=== PATIENT | male | born 1965 | race Caucasian/White ===

== ENCOUNTER 2023-12-02 00:22 | Emergency (ER) | payer OTHER ==
[2023-12-02 00:28] VITALS: TEMP 97.5
--- NOTE | 2023-12-02 01:17 | ERPHSYRPT ---
- History of Present Illness Time Seen by Provider: 12/02/23 00:59 Source: patient Exam Limitations: no limitations Patient Subjective Stated Complaint: 3 FALLS AT HOME TODAY, LEFT SIDED RIB PAIN Triage Nursing Assessment: Pt brought back to ER room 5 via wheelchair, friend at bedside. Pt is alert and oriented x4. Pt c/o 3 falls today, weakness over the last month, and occasional dizziness. Pt c/o left side of ribs hurting, no bruising noted, but pt is very tender to touch left rib area. Pt fell 2 times inside and 1 time outside today. Pt denies any loc or seizure with falls. Pt has multiple abrasion areas to left side of forehead, above left eye, left upper cheek, bilat hands and arms and bilat knees. Lungs clear, heart tones reg. Pt c/o pain when taking in a deep breath. Pt does not live alone, he has roommates. Pt has a cane but was not using it today with any of his falls. Pt has had several medicine changes lately, and he's thinking this may be the cause of it. His sleeping pill was added on 11/26/23. Physician History: Pt states yesterday he fell twice inside(living room & bedroom) and once outside on an asphalt driveway. Pt states the reason for his falls is that he looses his balance and this has been happening for the past 2 years since his stroke. Pt c/o a bitemporal headache, left rib pain and left thigh pain. Pt states his stroke 2 years ago has left him with residual left sided weakness and decreased sensation in his left hand. Pt denies abdominal pain, nausea, vomiting, diarrhea, fever, chills, cough, back pain. Allergies/Adverse Reactions: Penicillins Allergy (Verified 12/02/23 00:25) Home Medications: Amiodarone HCl [Pacerone] 200 mg PO DAILY 12/02/23 [History] Amlodipine Besylate 5 mg [Norvasc 5 mg] 1 tab PO EVENING MEAL 12/02/23 [History] Aripiprazole 10 mg [Abilify 10 MG] 1 tab PO EVENING MEAL 12/02/23 [History] Aspirin EC 81 mg [Ecotrin 81 mg] 1 tab PO EVENING MEAL 12/02/23 [History] Atomoxetine HCl 18 mg PO DAILY 12/02/23 [History] Atorvastatin Calcium 80 mg PO EVENING MEAL 12/02/23 [History] PARoxetine HCL [Paroxetine HCl] 10 mg PO DAILY 12/02/23 [History] Zolpidem Tartrate 10 mg [Ambien 10 MG] 1 tab PO EVENING MEAL 12/02/23 [History] Hx Tetanus, Diphtheria Vaccination/Date Given: Yes Hx Influenza Vaccination/Date Given: No Hx Pneumococcal Vaccination/Date Given: No Travel Risk - International Travel Have you traveled outside of the country in past 3 weeks: No - Emerging Infectious Disease Are you exhibiting symptoms associated with any current EIDs: No - Review of Systems Constitutional: No Fever, No Chills Ears, Nose, & Throat: No Throat Pain Respiratory: Other (pain in left ribs with deep inspiration), No Dyspnea Cardiac: Chest Pain (left lateral rib pain) Abdominal/Gastrointestinal: No Abdominal Pain, No Nausea, No Vomiting, No Diar hosea Musculoskeletal: No Back Pain Neurological: Headache (bitemporal) - Past Medical History Pertinent Past Medical History: Yes Neurological History: Stroke ENT History: No Pertinent History Cardiac History: Angina, Arrhythmia, Congestive Heart Failure, Hypertension, Myocardial Infarction ([place]) Respiratory History: Sleep Apnea Endocrine Medical History: No Pertinent History Musculoskeletal History: Rheumatoid Arthritis GI Medical History: No Pertinent History History: No Pertinent History Psycho-Social History: Anxiety, Bipolar, Depression, Panic Disorder Male Reproductive Disorders: No Pertinent History - Past Surgical History Past Surgical History: Yes Neuro Surgical History: No Pertinent History Cardiac: Cardiac Catheterization, Cardiac Stent Respiratory: No Pertinent History Gastrointestinal: Appendectomy Genitourinary: No Pertinent History Musculoskeletal: Orthopedic Surgery Male Surgical History: No Pertinent History Other Surgical History: RT SHOULDER - Social History Smoking Status: Current every day smoker How long have you smoked: 43 YRS Exposure to second hand smoke: Yes Drug Use: marijuana - Social Determinants of Health Will the patient participate in the screening: Yes Do you worry about a steady place to live?: Yes Do you have any problems with any of the following?: No known problems In the past 12 months,have you had to go without utilities?: No Transportation Issues: Yes Has anyone in your support network made you feel unsafe?: No Have you or anyone in your house had to go without enough: No - Nursing Vital Signs Nursing Vital Signs: Initial Vital Signs Pulse Rate 79 12/02/23 00:21 Respiratory Rate 22 12/02/23 00:21 Blood Pressure 136/80 12/02/23 00:21 O2 Sat by Pulse Oximetry 95 12/02/23 00:21 Pain Scale Pain Intensity 1 - [place] Coma Score Best Eye Response ([place]): (4) open spontaneously Best Verbal Response ([place]): (5) oriented Best Motor Response ([place]): (6) obeys commands [place] Total: 15 - Physical Exam General Appearance: alert Head Injury: No no evidence of injury (Scattered abrasions on face) Eye Exam: PERRL/EOMI ENT Exam: airway nml, hearing grossly normal, No clear fluid (ears), No clear fluid (nose) Neck Exam: pain on movement of neck (mild pain when rotating head to right) Respiratory/Chest Exam: normal breath sounds, rib tenderness (moderate left lateral rib tenderness) Cardiovascular Exam: normal heart sounds Gastrointestinal Exam: normal bowel sounds, No tenderness Back Exam: No vertebral tenderness Extremity Exam: normal range of motion, tenderness (mid left thigh tenderness) Peripheral Pulses: dorsalis-pedis (R): 1+, dorsalis-pedis (L): 1+ Neurologic Exam: alert, cooperative, sensory deficit (decreased sensation in left hand(ongoing since CVA 2 years ago)), No motor deficits Skin Exam: abrasion (scattered abrasions on upper & lower extremities) SpO2 Interpretation: normal SpO2: 95 O2 Delivery: Room Air - Course Nursing assessment & vital signs reviewed: Yes EKG Interpreted by Me: RATE (78), Sinus Rhythm, NORMAL AXIS, Other (QTc = 483) - Radiology Exams Left Femur X-ray Interpretation: Interpreted by me, No Fracture - CT Exams Chest CT Interpretation: Tele-radiologist Report (Multilevel bilateral rib fractures, and displaced acute fractures were noted on the left anterior ribs. Left patchy consolidations and left mild pleural effusion could represent mild heomthorax w ith adjacent pulmonary contusions. See rest of report.) Head CT Interpretation: Tele-radiologist Report (Diffusely swollen left cadet deck muscles with smudged surrounding fat planes. Left frontal subcortical well defined hemorragic density 11 x 9 mm. See rest of report.) Cervical Spine CT Interpretation: Tele-radiologist Report (No vertebral fractures or acute dislocation. See rest of report.) Maxillofacial Bones CT Interpretation: Tele-radiologist Report (Left orbital inferior wall blowout fracture with sagging of the extra-conal fat, no obvious extra-ocular muscles entrapment. Fine lucent line traversing the right nasal bone that could represent a nutrient vessel versus non-displaced fracture. See rest of report.) Ordered Tests: Active Orders 24 hr Category Date Time Status Cervical Collar Application STAT Care 12/02/23 03:40 Active EKG-ER Only STAT Care 12/02/23 01:12 Active IV Insertion STAT Care 12/02/23 01:12 Active ACO SDOH Referral ONCE Cons 12/02/23 00:43 Active CERVICAL SPINE WO CONTRAST [CT] Stat Exams 12/02/23 01:15 Completed CHEST WITHOUT CONTRAST [CT] Stat Exams 12/02/23 01:14 Completed FACIAL BONES WO CONTRAST [CT] Stat Exams 12/02/23 01:20 Completed FEMUR Stat Exams 12/02/23 01:15 Taken HEAD WITHOUT CONTRAST [CT] Stat Exams 12/02/23 01:14 Completed AMYLASE Stat Lab 12/02/23 01:33 Completed CBC W DIFF Stat Lab 12/02/23 01:33 Completed CMP Stat Lab 12/02/23 01:33 Completed ETHYL ALCOHOL Stat Lab 12/02/23 01:33 Completed LIPASE Stat Lab 12/02/23 01:33 Completed MAGNESIUM Stat Lab 12/02/23 01:33 Completed PROTIME WITH INR Stat Lab 12/02/23 01:33 Completed PTT Stat Lab 12/02/23 01:33 Completed TROPONIN Q4H Lab 12/02/23 01:33 Completed TROPONIN Q4H Lab 12/02/23 05:15 Ordered TROPONIN Q4H Lab 12/02/23 09:15 Ordered UA W/RFX UR CULTURE Stat Lab 12/02/23 01:12 Ordered Urine Triage Profile Stat Lab 12/02/23 01:12 Ordered Medication Summary Discontinued Medications Generic Name Dose Route Start Last Admin Trade Name Freq PRN Reason Stop Dose Admin Sodium Chloride 1,000 mls @ 999 mls/hr 12/02/23 01:12 12/02/23 03:03 Sodium Chloride 0.9% 1000 Ml IV 12/02/23 02:12 Infused .Q1H1M STA Infusion Acetaminophen 1,000 mg in 100 mls @ 400 mls/hr 12/02/23 01:33 12/02/23 02:02 Ofirmev IV 12/02/23 01:47 400 mls/hr 1HRPRIOR ONE Administration Acetaminophen Confirm 12/02/23 01:34 Ofirmev Administered 12/02/23 01:35 Dose 100 mls @ ud IV .STK-MED ONE Sodium Chloride Confirm 12/02/23 01:34 Sodium Chloride 0.9% 1000 Ml Administered 12/02/23 01:35 Dose 1,000 mls @ ud .ROUTE .STK-MED ONE Lab/Rad Data: Laboratory Result Diagrams 12/02/23 01:33 12/02/23 01:33 Laboratory Results 12/02/23 12/02/23 12/02/23 Range/Units 01:33 01:33 01:33 WBC (4.23-9.07) x10^3/uL RBC (4.63-6.08) x10^6/uL Hgb (13.7-17.5) g/dL Hct (40.1-51.0) % MCV (79.0-92.2) fL MCH (25.7-32.2) pg MCHC (32.3-36.5) g/dL RDW (11.6-14.4) % Plt Count (163-337) x10^3/uL MPV (9.4-12.4) fL Gran % (34.0-67.9) % Immature Gran % (Auto) (0.001-0.429) % Nucleat RBC Rel Count (0.00-0.2) % Eos # (Auto) (0.04-0.54) x10^3/uL Immature Gran # (Auto) (0.001-0.031) x10^3u/L Absolute Lymphs (auto) (1.32-3.57) x10^3/uL Absolute Monos (auto) (0.30-0.82) x10^3/uL Absolute Nucleated RBC (0.00-0.012) x10^3u/L Lymphocytes % (21.8-53.1) % Monocytes % (5.3-12.2) % Eosinophils % (0.8-7.0) % Basophils % (0.2-1.2) % Absolute Granulocytes (1.78-5.38) x10^3/uL Basophils # (0.01-0.08) x10^3/uL PT 10.9 (9.4-12.5) SECONDS INR 1.00 (0.8-3.0) APTT 26.3 (25.1-36.5) SECONDS Sodium 136 (135-145) mmol/L Potassium 3.1 L (3.5-5.1) mmol/L Chloride 98 (98-107) mmol/L Carbon Dioxide 26 (22-30) mmol/L Anion Gap 14.8 (5-15) MEQ/L BUN 22 H (9-20) mg/dL Creatinine 1.28 H (0.66-1.25) mg/dL Estimated GFR 64.9 ML/MIN Glucose 139 H (74-106) mg/dL Calcium 9.6 (8.4-10.2) mg/dL Magnesium 2.0 (1.6-2.3) mg/dL Total Bilirubin 1.00 (0.2-1.3) mg/dL AST 72 H (17-59) U/L ALT 70 H (0-50) U/L Alkaline Phosphatase 114 (38-126) U/L Troponin I 0.033 (0.000-0.033) ng/mL Serum Total Protein 7.6 (6.3-8.2) g/dL Albumin 4.3 (3.5-5.0) g/dL Amylase 63 (30-110) U/L Lipase 118 (23-300) U/L Ethyl Alcohol < 10 (0-10) mg/dL 12/02/23 Range/Units 01:33 WBC 13.3 H (4.23-9.07) x10^3/uL RBC 4.72 (4.63-6.08) x10^6/uL Hgb 13.7 (13.7-17.5) g/dL Hct 40.1 (40.1-51.0) % MCV 85.0 (79.0-92.2) fL MCH 29.0 (25.7-32.2) pg MCHC 34.2 (32.3-36.5) g/dL RDW 14.6 H (11.6-14.4) % Plt Count 240 (163-337) x10^3/uL MPV 10.8 (9.4-12.4) fL Gran % 87.5 H (34.0-67.9) % Immature Gran % (Auto) 0.5 H (0.001-0.429) % Nucleat RBC Rel Count 0.0 (0.00-0.2) % Eos # (Auto) 0 L (0.04-0.54) x10^3/uL Immature Gran # (Auto) 0.06 H (0.001-0.031) x10^3u/L Absolute Lymphs (auto) 0.98 L (1.32-3.57) x10^3/uL Absolute Monos (auto) 0.59 (0.30-0.82) x10^3/uL Absolute Nucleated RBC 0.00 (0.00-0.012) x10^3u/L Lymphocytes % 7.4 L (21.8-53.1) % Monocytes % 4.4 L (5.3-12.2) % Eosinophils % 0.0 L (0.8-7.0) % Basophils % 0.2 (0.2-1.2) % Absolute Granulocytes 11.63 H (1.78-5.38) x10^3/uL Basophils # 0.03 (0.01-0.08) x10^3/uL PT (9.4-12.5) SECONDS INR (0.8-3.0) APTT (25.1-36.5) SECONDS Sodium (135-145) mmol/L Potassium (3.5-5.1) mmol/L Chloride (98-107) mmol/L Carbon Dioxide (22-30) mmol/L Anion Gap (5-15) MEQ/L BUN (9-20) mg/dL Creatinine (0.66-1.25) mg/dL Estimated GFR ML/MIN Glucose (74-106) mg/dL Calcium (8.4-10.2) mg/dL Magnesium (1.6-2.3) mg/dL Total Bilirubin (0.2-1.3) mg/dL AST (17-59) U/L ALT (0-50) U/L Alkaline Phosphatase (38-126) U/L Troponin I (0.000-0.033) ng/mL Serum Total Protein (6.3-8.2) g/dL Albumin (3.5-5.0) g/dL Amylase (30-110) U/L Lipase (23-300) U/L Ethyl Alcohol (0-10) mg/dL - Progress Progress: unchanged Will see patient in: other (Dr. Zee([id number]) accepted pt for transfer to [facility].) Counseled pt/family regarding: lab results, diagnosis, rad results Medical Desision Making - Diagnostic Testing Diagnostic test were ordered, analyzed, and reviewed by me: Yes Radiological Interpretation: Discussed w/ radiologist - Departure Departure Disposition: Transfer ([facility]) Clinical Impression: Fall, Left orbital blowout fracture, Possible nasal bone fracture, Left frontal hemorrhagic density, Multiple acute left rib fractures Condition: Stable Critical Care Time: Yes Critical Care Time(excluding separately billable procedures): Critical 30-74 mins Referrals: MABEL GUSMAN [Primary Care Provider] - Follow up/PCP as directed
[2023-12-02] MEDS ORDERED: Sodium Chloride 0.9% 1000 ML 1,000 ML ONE (01:34)
[2023-12-02] MEDS ORDERED: OFIRMEV 100 ML IV ONE (01:34)
[2023-12-02 01:36] LABS: Absolute Neutrophil Ct (ANC) 11.63 x10^3/uL (1.78-5.38); BASOPHIL % 0.2 % (0.2-1.2); Basophil (Absolute #) 0.03 x10^3/uL (0.01-0.08); Eosinophil (Absolute #) 0 x10^3/uL (0.04-0.54); Hematocrit 40.1 % (40.1-51.0); Hemoglobin 13.7 g/dL (13.7-17.5); IMMATURE GRAN # 0.06 x10^3u/L (0.001-0.031); IMMATURE GRAN % 0.5 % (0.001-0.429); Lymphocyte (Absolute #) 0.98 x10^3/uL (1.32-3.57); Lymphocytes % 7.4 % (21.8-53.1); Mean Corpuscular Hgb Concent. 34.2 g/dL (32.3-36.5); Mean Platelet Volume 10.8 fL (9.4-12.4); Monocyte (Absolute #) 0.59 x10^3/uL (0.30-0.82); Monocytes % 4.4 % (5.3-12.2); Neutrophil % 87.5 % (34.0-67.9); Platelet Count 240 x10^3/uL (163-337); Red Blood Count 4.72 x10^6/uL (4.63-6.08); Red Cell Distribution Width 14.6 % (11.6-14.4); White Blood Count 13.3 x10^3/uL (4.23-9.07)
[2023-12-02 01:51] LABS: ALBUMIN 4.3 g/dL (3.5-5.0); ALKALINE PHOSPHATASE 114 U/L (38-126); AMYLASE 63 U/L (30-110); ANION GAP 14.8 MEQ/L (5-15); BLOOD UREA NITROGEN 22 mg/dL (9-20); CHLORIDE 98 mmol/L (98-107); Calcium 9.6 mg/dL (8.4-10.2); Carbon Dioxide 26 mmol/L (22-30); Creatinine 1 1.28 mg/dL (0.66-1.25); EST GLOMERULAR FILTRATION RATE 64.9 ML/MIN; ETHYL ALCOHOL < 10 mg/dL (0-10); Glucose 139 mg/dL (74-106); LIPASE 118 U/L (23-300); Potassium 3.1 mmol/L (3.5-5.1); SGOT/AST 72 U/L (17-59); SGPT/ALT 70 U/L (0-50); SODIUM 136 mmol/L (135-145); Total Protein 7.6 g/dL (6.3-8.2)
[2023-12-02 01:52] LABS: PROTIME 10.9 SECONDS (9.4-12.5); PTT 26.3 SECONDS (25.1-36.5)
[2023-12-02] MEDS: Sodium Chloride 0.9% 1000 ML 1,000 ML IV STA (02:02)
[2023-12-02] MEDS: OFIRMEV 1,000 MG/100 ML ML IV ONE (02:02)
--- NOTE | 2023-12-02 02:29 | XRAY ---
CLINICAL HISTORY: fall/bitemporal headache COMPARISON: None. TECHNIQUE: Axial noncontrast CT scan of the brain was performed from the skull base to the high parietal region. One of the following dose reduction techniques were utilized for this exam: Automated exposure control, adjustment of the mA and/or kV according to patient size, use of iterative reconstruction?. 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 Left qecucu-muqwex-jxyszmte subcutaneous soft tissue edema. Left frontal subcortical well-defined hemorrhagic density 11 x 9 mm with surrounding hypodense rim. Accentuated bilateral cerebral periventricular white matter hypodensities denoting hypoperfusion with bilateral cerebral periventricular and subcortical as well as basal ganglia hypodense foci are noted. The bean-white mater differentiation is preserved. Pontine hypodense areas are noted. Normal CT appearance of the posterior fossa structures namely the cerebellar hemispheres and cerebellar peduncles. Prominent ventricular system, cortical sulci and extra-axial CSF spaces. No midline shifts or deformity. Focal contour depression of the left frontal bone outer table. No definite calvarial fractures. The osseous structures in the skull base are unremarkable. left orbital inferior wall blowout fracture. A fine lucent line traversing the right nasal bone that could represent nutrient vessel versus non-displaced fracture, advises clinical correlation. The scanned paranasal sinuses are unremarkable. IMPRESSION: 1. Diffusely swollen left linux network systems administrator muscles with smudged surrounding fat planes. 2. Left fzpnvm-pvgzns-vmqtciud subcutaneous soft tissue edema. 3. Left frontal subcortical well defined hemorrhagic density 11 x 9 mm. Diagnostic possibilities include hemorrhagic contusion, and hemorrhagic neoplasm. Advise clinical correlation and follow up. 4. Bilateral cerebral and pontine microvascular ischemic changes. 5. Age matches mild brain involutional changes. Electronically Signed by: Ángel Ball MD. (12/02/2023 02:25:47 EDT)
--- NOTE | 2023-12-02 02:59 | XRAY ---
CLINICAL HISTORY: fall COMPARISON: None. TECHNIQUE: Multiple axial images of CT cervical spine without contrast was submitted in bone and soft tissue window. One of the following dose reduction techniques were utilized for this exam: Automated exposure control, adjustment of the mA and/or kV according to patient size, use of iterative reconstruction. FINDINGS: Straightened cervical curve denoting myospasm. Mild retrolisthesis of C3 over C4, C4 over C5 and C5 over C6. The examined vertebral bodies show no structural collapse or posterior neural elements fractures. No vertebral fractures or acute dislocation. Degenerative changes of the atlanto-odontoid articulation with related calcifications. Cervical spondylodegenerative changes are evident by marginal osteophytic lipping and multilevel subchondral sclerosis of the examined vertebral end with multilevel disc spaces narrowing and vacuum phenomenon. Bilateral C3-C4 down to C6-C7 degenerative unco-vertebral arthropathy with osteophytes formation seen encroaching upon the corresponding neural exit foramina. Multilevel degenerative facet arthropathy. C3-C4 down to C6-C7 variable degrees of posterior disc protrusions/osteophyte complex indenting the theca and encroaching upon the related neural exit foramina. No developmental spinal canal tightness. No paraspinal mases. Vascular atheromatous calcifications. IMPRESSION: 1. Straightened cervical curve denoting myospasm. 2. Mild retrolisthesis of C3 over C4, C4 over C5 and C5 over C6. 3. No vertebral fractures or acute dislocation. 4. Cervical spondylodegenerative changes with multilevel uncovertebral and facet arthropathy along with C3-C4 down to C6-C7 variable degrees of posterior disc protrusions/osteophyte complex inducing spinal canal and neural exit pathway stenosis. Electronically Signed by: Ángel Ball MD. (12/02/2023 02:54:46 EDT)
--- NOTE | 2023-12-02 03:01 | XRAY ---
CLINICAL HISTORY: fall COMPARISON: none TECHNIQUE: Fine slice post-contrast helical CT images were obtained through the maxillofacial bones without contrast injection. Soft tissue and bone windows were reconstructed. One of the following dose reduction techniques were utilized for this exam: Automated exposure control, adjustment of the mA and/or kV according to patient size, use of iterative reconstruction FINDINGS: Diffusely swollen left autos disassembler muscles with smudged surrounding fat planes. Left jhcufs-pttloi-aeciqfoh subcutaneous soft tissue edema Left orbital inferior wall blow out fracture with sagging of the extra-conal fat, no obvious extra-ocular muscles entrapment. Fine lucent line traversing the right nasal bone that could represent nutrient vessel versus non displaced fracture. Advise clinical correlation. The left nasal bone is intact with no fractures. Bowing of the nasal septum convex to the left side with bony spur seen along its convex side. The scanned paranasal sinuses show intact bony boundaries. Minimal focal mucosal thickening of the right sphenoid sinus compartment. Clear maxillary antra, ethmoidal air cells, frontal and sphenoid sinuses. Patent osteomeatal unit and both sphenoethmoidal recesses. Normal osseous texture of the mandible with no fractures or destructive osseous lesions. Normal temporomandibular joints. The rest of the orbital bony boundaries are intact. The orbits have a normal appearance with unremarkable eye globes and extra-ocular muscles. Clear intra-orbital fat planes. The pterygoid plates and pterygopalatine fossa are normal. The zygomatic arch is normal and there is no diastasis of the frontozygomatic suture. IMPRESSION: 1. Diffusely swollen left autos disassembler muscles with smudged surrounding fat planes. 2. Left xtzgkb-iozvbb-palqfvdv subcutaneous soft tissue edema 3. Left orbital inferior wall blowout fracture with sagging of the extra-conal fat, no obvious extra-ocular muscles entrapment. 4. Fine lucent line traversing the right nasal bone that could represent a nutrient vessel versus non-displaced fracture. Advise clinical correlation. 5. Bowing of the nasal septum convex to the left side with bony spur seen along its convex side. 6. Intact rest of the examined maxillofacial bones. [facility] was called at [phone] at 1:53 AM FLIGHT ATTENDANT ,12/02/2023 and Zainab(nurse) was informed regarding the presence of Important Medical Findings in the report. Electronically Signed by: Ángel Ball MD. (12/02/2023 02:56:23 EDT)
--- NOTE | 2023-12-02 03:13 | XRAY ---
CLINICAL HISTORY: left rib pain/fall COMPARISON: None. TECHNIQUE: Contiguous axial CT images of the chest were acquired without administration of intravenous contrast. Coronal and sagittal reconstructions were obtained. One of the following dose reduction techniques were utilized for this exam: Automated exposure control, adjustment of the mA and/or kV according to patient size, use of iterative reconstruction. FINDINGS: Lungs: Patchy groundglass opacities involving the basal segments of the left lower lobe and the dependent portion of the superior segment of the left lower lobe. There are bilateral few atelectatic bands, more on the right. There are 2 adjacent 5 mm nodules noted in the anterior basal segment of the right lower lobe. There is a 2 mm calcified pulmonary nodule seen in the lingula. No evidence of interstitial lung disease or emphysema. Mild left pleural effusion. No right-sided significant pleural effusion. Mediastinum: The mediastinum is normal in size and contour. No mediastinal mass . A few calcified mediastinal lymph nodes. The heart size is within normal limits.Atherosclerotic changes noted in the coronaries. Hilar Structures: The hilar structures appear normal without enlargement or abnormality. Trachea and Main Bronchi: The trachea and main bronchi are patent without evidence of obstruction or abnormality. Upper Abdomen: Calcific foci seen within the liver and spleen, indicating calcified granulomas. Multiple gallstones, no pericholecystic fluid or edema. Atherosclerotic changes of the aorta and its major branches, more pronounced in the upper abdominal area. Bones: Internal fixation of the right lateral clavicle. Left side: Multilevel left anterior displaced fractures noted at the fifth, 6, 7 ribs. Nondisplaced fractures noted in the anterior left 11th, the anterior fourth, posterior third, posterior fifth, posterior 7th-10th ribs Right side: Malunion fracture noted in the posterior 4th-6th rib. Bony bridge between the seventh and eighth ribs.A corticated fracture with callus formation noted in the posterior 12th rib. Other findings: An oval hypodense thyroid nodule measuring 1.9 x 0.7 mm, is seen in the isthmus. IMPRESSION: 1. Multilevel bilateral rib fractures, and displaced acute fractures were noted on the left anterior ribs. Indeterminate age fractures are noted on the right, For clinical correlation. 2. Left basilar patchy consolidations, and left mild pleural effusion, could represent mild hemothorax with adjacent pulmonary contusions. For clinical correlation and follow-up. 3. Thyroid nodule, for thyroid ultrasound correlation. 4. Multiple gallstones, no pericholecystic fluid or edema, for upper abdominal ultrasound correlation. 5. 2 right-sided pulmonary nodules and left calcified pulmonary nodule (likely calcified granuloma), Lung-RADS 2, for 12 months follow-up.. [facility] was called at [phone] at 1:53 AM POLISHER EYEGLASS FRAMES ,12/02/2023 and Zainab(nurse) was informed regarding the presence of Significant Medical Findings in the report. Electronically Signed by: Ángel Ball MD. (12/02/2023 03:09:43 EDT)
[2023-12-02] MEDS ORDERED: MORPHINE SULFATE 2 MG INJ ONE (03:51)
[2023-12-02] MEDS ORDERED: CLINDAMYCIN-D5W 900 MG/50 ML*** 900 MG/50 ML BAG IV ONE (03:51)
[2023-12-02] MEDS: MORPHINE SULFATE 2 MG INJ IV ONE (03:53)
[2023-12-02] MEDS: CLINDAMYCIN-D5W 900 MG/50 ML*** 900 MG/50 ML BAG IV STA (03:53)
[2023-12-02] MEDS: Sodium Chloride 0.9% W/ 20 mEq KCl/LITER 1,000 ML IV SCH (04:00)
[2023-12-02] MEDS ORDERED: Sodium Chloride 0.9% W/ 20 mEq KCl/LITER 1,000 ML IV ONE (04:00)
[2023-12-02 04:03] VITALS: BP 125/71; PULSE 69; RESP 21; O2SAT 98
[2023-12-02 04:24] LABS: Appearance Clear (Clear); Bacteria None Seen /HPF (None Seen); Bilirubin Negative (Negative); Blood Negative (Negative); Epithelial Cells Few /HPF (None Seen); Glucose, Urine Negative (Negative); Ketones Trace (Negative); Leukocyte Esterase Negative (Negative); Nitrite Negative (Negative); Ph 5.5 (4.6-8.0); Protein,Urine Dip 30 (Negative); RBC 0-2 /HPF (0-5); Specific Gravity 1.015 (1.005-1.030); WBC 0-2 /HPF (0-5)
[2023-12-02 04:25] LABS: ADD URINE CULTURE? NO (NO)
[2023-12-02 04:30] LABS: Amphetamine,Urine NEGATIVE (NEGATIVE); Barbiturate,Urine NEGATIVE (NEGATIVE); Benzodiazepine,Urine NEGATIVE (NEGATIVE); Cocaine,Urine NEGATIVE (NEGATIVE); Methadone,Urine NEGATIVE (NEGATIVE); Opiate,Urine NEGATIVE (NEGATIVE); PCP,Urine NEGATIVE (NEGATIVE); THC,Urine POSITIVE (NEGATIVE)
--- NOTE | 2023-12-02 09:11 | XRAY ---
Indication: Multiple falls. Comparison: None 2 view left femur demonstrates osteopenia and extensive scattered vascular calcifications. No other bony, articular, or soft tissue abnormalities.
== END 2023-12-02 04:20 | disposition short-term general hospital (02) ==
LOC: ED 00:22
DX: S22.42XA Multiple fractures of ribs, left side, initial encounter for closed fracture (principal); R07.81 Pleurodynia; Z59.819 Housing instability, housed unspecified; S02.32XA Fracture of orbital floor, left side, initial encounter for closed fracture; W19.XXXA Unspecified fall, initial encounter; I11.0 Hypertensive heart disease with heart failure; I50.9 Heart failure, unspecified; F17.200 Nicotine dependence, unspecified, uncomplicated; Z86.73 Personal history of transient ischemic attack (TIA), and cerebral infarction without residual deficits; Z79.899 Other long term (current) drug therapy
CPT/HCPCS: 36000; 36415; 70450; 70486; 71250; 72125; 73552; 80053; 80307; 81001; 82077; 82150; 83690; 83735; 84484; 85025; 85610; 85730; 93005; 96365; 96374; 99285; 99291; J2270

== ENCOUNTER 2024-04-03 17:42 | Observation (INO) | payer MEDICAID, OTHER ==
--- NOTE | 2024-04-03 18:34 | ERPHSYRPT ---
- History of Present Illness Source: patient Exam Limitations: no limitations Patient Subjective Stated Complaint: PT HERE FOR LEFT FOOT PAIN FOR OVER 3 MONTHS NOW. PT STATES THAT DR CAST HAS DONE SOMETHING TO IT AND IS ON ANTIBIOTICS THAT HE IS NOT TAKING CORRECTLY Triage Nursing Assessment: PT ALERT, ARRIVED PER EMS, ALERT, RESP EASY, SKIN W/D/P. HAS SWELLING TO BOTTOM OF LEFT FOOT WITH A OPEN AREA, NO DRAINAGE AT THIS TIME Hx Tetanus, Diphtheria Vaccination/Date Given: No Hx Influenza Vaccination/Date Given: No Hx Pneumococcal Vaccination/Date Given: No Immunizations Up to Date: Yes <PARVEEN WARE - Last Filed: 04/03/24 18:59> <MARK WALDRON - Last Filed: 04/11/24 13:06> - History of Present Illness Physician History: Patient had an ongoing foot problem for about 3 months the pain has gotten a lot worse. He has a infected ulcer and cellulitis at the base of his fifth MTP. It was lanced and debrided. He has been on Keflex and 1 other antibiotic daily for the last 3 months he says. He is obviously failing outpatient. The pain is what brought him in. He has not had any fever chills or other toxic symptoms. I do not know if there is ever been any cultures drawn by [facility]kit some cultures on him. (PARVEEN WARE) Allergies/Adverse Reactions: Penicillins Allergy (Verified 04/03/24 17:46) Home Medications: Amiodarone HCl [Pacerone] 200 mg PO DAILY 12/02/23 [History] Amlodipine Besylate 5 mg [Norvasc 5 mg] 1 tab PO EVENING MEAL 12/02/23 [History] Aripiprazole 10 mg [Abilify 10 MG] 1 tab PO EVENING MEAL 12/02/23 [History] Aspirin EC 81 mg [Ecotrin 81 mg] 1 tab PO EVENING MEAL 12/02/23 [History] Atomoxetine HCl 18 mg PO DAILY 12/02/23 [History] Atorvastatin Calcium 80 mg PO EVENING MEAL 12/02/23 [History] PARoxetine HCL [Paroxetine HCl] 10 mg PO DAILY 12/02/23 [History] Zolpidem Tartrate 10 mg [Ambien 10 MG] 1 tab PO EVENING MEAL 12/02/23 [History] Dextroamphetamine/Amphetamine [Dextroamp-Amphetamin 30 mg Tab] 30 mg PO DAILY 04/04/24 [History] Hydrocodone/Acetaminophen [Hydrocodone-Acetamin 7.5-325] 1 each PO BID 04/04/24 [History] PARoxetine HCL [Paroxetine HCl] 10 mg PO DAILY 04/04/24 [History] Travel Risk - International Travel Have you traveled outside of the country in past 3 weeks: No - Emerging Infectious Disease Are you exhibiting symptoms associated with any current EIDs: No <PARVEEN WARE - Last Filed: 04/03/24 18:59> - Review of Systems Constitutional: No Symptoms Eyes: No Symptoms Respiratory: No Symptoms Cardiac: No Symptoms Abdominal/Gastrointestinal: No Symptoms Skin: Cellulitis Neurological: No Symptoms Psychological: No Symptoms All Other Systems: Reviewed and Negative <PARVEEN WARE - Last Filed: 04/03/24 18:59> - Past Medical History Pertinent Past Medical History: Yes Neurological History: Stroke ENT History: No Pertinent History Cardiac History: Angina, Arrhythmia, Congestive Heart Failure, Hypertension, Myocardial Infarction ([place]) Respiratory History: Sleep Apnea Endocrine Medical History: No Pertinent History Musculoskeletal History: Rheumatoid Arthritis GI Medical History: No Pertinent History History: No Pertinent History Psycho-Social History: Anxiety, Bipolar, Depression, Panic Disorder Male Reproductive Disorders: No Pertinent History - Past Surgical History Past Surgical History: Yes Neuro Surgical History: No Pertinent History Cardiac: Cardiac Catheterization, Cardiac Stent Respiratory: No Pertinent History Gastrointestinal: Appendectomy Genitourinary: No Pertinent History Musculoskeletal: Orthopedic Surgery Male Surgical History: No Pertinent History Other Surgical History: RT SHOULDER - Social History Smoking Status: Current every day smoker How long have you smoked: 43 YRS Exposure to second hand smoke: Yes Drug Use: marijuana - Social Determinants of Health Will the patient participate in the screening: Yes Do you worry about a steady place to live?: Yes Do you have any problems with any of the following?: No known problems In the past 12 months,have you had to go without utilities?: No Transportation Issues: Yes Has anyone in your support network made you feel unsafe?: No Have you or anyone in your house had to go without enough: No <PARVEEN WARE - Last Filed: 04/03/24 18:59> - Physical Exam General Appearance: no apparent distress Eyes, Ears, Nose, Throat Exam: normal ENT inspection Neck Exam: normal inspection Cardiovascular/Respiratory Exam: chest non-tender Back Exam: normal inspection Ankle Exam: bilateral ankle: non-tender, normal inspection, normal range of motion, no evidence of injury Foot Exam: left foot: bone tenderness, infection (Base of fifth metatarsal), pain (With palpation), swelling (Mild) Neuro/Tendon Exam: normal sensation Mental Status Exam: alert Skin Exam: normal color, warm, other (Suspicious cellulitis on the bottom of the left foot) SpO2: 98 <PARVEEN WARE - Last Filed: 04/03/24 18:59> - Nursing Vital Signs Nursing Vital Signs: Initial Vital Signs Temperature 97.1 F 04/03/24 17:47 Pulse Rate 71 04/03/24 17:47 Respiratory Rate 18 04/03/24 17:47 Blood Pressure 140/84 04/03/24 17:47 O2 Sat by Pulse Oximetry 97 04/03/24 17:47 Pain Scale Pain Intensity 6 - Course Nursing assessment & vital signs reviewed: Yes - Radiology Exams Left Foot X-ray Interpretation: Interpreted by me, No Fracture <MARK WALDRON - Last Filed: 04/11/24 13:06> Ordered Tests: Medication Summary Discontinued Medications Generic Name Dose Route Start Last Admin Trade Name Marlin PRN Reason Stop Dose Admin Acetaminophen 325 mg 04/04/24 00:55 Acetaminophen 325 Mg Tablet PO 05/04/24 00:54 Q4H PRN PRN PAIN, FEVER, HEADACHE Hydrocodone Bitart/Acetaminophen 1 tablet 04/03/24 20:20 04/03/24 20:26 Hydrocodone/Acetamin 10-325 Mg Tablet PO 04/03/24 20:21 1 tablet STAT ONE Administration Hydrocodone Bitart/Acetaminophen Confirm 04/03/24 20:26 Hydrocodone/Acetamin 10-325 Mg Tablet Administered 04/03/24 20:27 Dose 1 tablet .ROUTE .STK-MED ONE Hydrocodone Bitart/Acetaminophen Confirm 04/03/24 20:32 Hydrocodone/Acetamin 10-325 Mg Tablet Administered 04/03/24 20:33 Dose 1 tablet .ROUTE .STK-MED ONE Hydrocodone Bitart/Acetaminophen 1 tab 04/04/24 10:00 04/04/24 09:57 Hydrocodone /Apap 7.5/325 Mg 1 Each Tablet PO 04/09/24 09:59 1 tab BID ALEENA Administration Hydrocodone Bitart/Acetaminophen 1 tab 04/04/24 18:49 04/06/24 09:16 Hydrocodone/Apap 5/325 1 Tab Tablet PO 04/09/24 18:48 1 tab Q6H PRN PRN Administration PAIN Amiodarone HCl 200 mg 04/04/24 10:00 04/06/24 09:17 Amiodarone Hcl 200 Mg Tab PO 05/04/24 09:59 200 mg DAILY ALEENA Administration Amlodipine Besylate 5 mg 04/04/24 18:00 04/05/24 18:56 Amlodipine Besylate 5 Mg Tablet PO 05/04/24 17:59 5 mg EVENING MEAL ALEENA Administration Aripiprazole 10 mg 04/04/24 18:00 04/05/24 18:56 Aripiprazole 10 Mg Tablet PO 05/04/24 17:59 10 mg EVENING MEAL ALEENA Administration Aspirin 81 mg 04/04/24 18:00 04/05/24 18:56 Aspirin 81 Mg Tablet.Ec PO 05/04/24 17:59 81 mg EVENING MEAL ALEENA Administration Bupivacaine HCl Confirm 04/04/24 11:09 Bupivacaine Hcl/Pf 150 Mg/30 Ml Vial Administered 04/04/24 11:10 Dose 150 mg .ROUTE .STK-MED ONE Cefepime HCl Confirm 04/03/24 23:00 Cefepime Hcl 2 Gm Vial Administered 04/03/24 23:01 Dose 2 g .ROUTE .STK-MED ONE Device 1 04/06/24 12:30 Therapuetic Drug Level Monitor Each IJ 04/06/24 12:31 1XONLY ONE Dexmedetomidine/Sodium Chloride Confirm 04/04/24 16:29 Dexmedetomidine In 0.9 % Nacl 80 Mcg/20 Ml Vial Administered 04/04/24 16:30 Dose 80 mcg IV .STK-MED ONE Doxycycline Hyclate 100 mg 04/06/24 22:00 04/06/24 11:47 Doxycycline Hyclate 100 Mg Tablet PO 05/06/24 21:59 100 mg BID ALEENA Administration Doxycycline Hyclate Confirm 04/06/24 11:46 Doxycycline Hyclate 100 Mg Tablet Administered 04/06/24 11:47 Dose 100 mg .ROUTE .STK-MED ONE Fentanyl Citrate Confirm 04/04/24 16:28 Fentanyl Citrate 100 Mcg/2 Ml* Vial Administered 04/04/24 16:29 Dose 100 mcg .ROUTE .STK-MED ONE Glycopyrrolate Confirm 04/04/24 16:51 Glycopyrrolate 0.2 Mg/1ml Sdv Administered 04/04/24 16:52 Dose 0.2 mg .ROUTE .STK-MED ONE Heparin Sodium (Beef Lung) 5,000 unit 04/04/24 10:00 04/06/24 09:17 Heparin 5000 Units/0.5 Ml 5,000 Unit/0.5 Ml Syr SQ 05/04/24 09:59 5,000 unit BID ALEENA Administration Vancomycin HCl 1 gm in 200 mls @ 125 mls/hr 04/03/24 22:42 04/04/24 07:08 Vancomycin 1 Gram/200 Ml Bag IV 04/04/24 00:17 Not Given STAT ONE Cefepime HCl 2 g/ Sodium 100 mls @ 200 mls/hr 04/03/24 22:42 04/03/24 23:02 Chloride IV 04/03/24 23:11 200 mls/hr STAT STA Administration Sodium Chloride 1,000 mls @ 999 mls/hr 04/03/24 22:43 04/03/24 23:02 Sodium Chloride 0.9% 1000 Ml IV 04/03/24 23:43 999 mls/hr .Q1H1M STA Administration Sodium Chloride Confirm 04/03/24 23:00 Sodium Chloride 0.9% Administered 04/03/24 23:01 Dose 100 mls @ ud .ROUTE .STK-MED ONE Sodium Chloride Confirm 04/03/24 23:00 Sodium Chloride 0.9% 1000 Ml Administered 04/03/24 23:01 Dose 1,000 mls @ ud .ROUTE .STK-MED ONE Sodium Chloride 1,000 mls @ 50 mls/hr 04/04/24 01:00 04/05/24 21:03 Sodium Chloride 0.9% 1000 Ml IV 05/04/24 00:59 50 mls/hr .Q20H ALEENA Administration Vancomycin HCl 1 gm in 200 mls @ 125 mls/hr 04/04/24 01:00 04/04/24 02:03 Vancomycin 1 Gram/200 Ml Bag IV 05/04/24 00:59 125 mls/hr Q24H ALEENA Administration Cefepime HCl 1 g/ Dextrose 100 mls @ 200 mls/hr 04/04/24 10:00 04/06/24 09:17 IV 05/04/24 09:59 200 mls/hr Q12HT ALEENA Administration Vancomycin HCl 1.25 gm in 250 mls @ 166.667 mls/hr 04/04/24 13:00 04/06/24 01:35 Vancomycin 1.25 Gm/250 Ml Bag IV 04/07/24 12:59 166.667 mls/hr Q12H ALEENA Administration Insulin Human Lispro 0 unit 04/04/24 00:55 Insulin Lispro 1 Unit SQ 05/04/24 00:54 UD PRN HYPERGLYCEMIA Lidocaine HCl Confirm 04/04/24 11:09 Lidocaine Hcl/Pf 1 % 30 Ml Pf Sdv Administered 04/04/24 11:10 Dose 30 ml IJ .STK-MED ONE Lidocaine HCl Confirm 04/04/24 16:28 Lidocaine - Mpf 2% 5 Ml Vial Administered 04/04/24 16:29 Dose 5 ml .ROUTE .STK-MED ONE Lorazepam 0.5 mg 04/04/24 14:19 04/04/24 14:42 Lorazepam 2 Mg/1 Ml 2 Mg Vial IV 04/04/24 14:20 0.5 mg ONCE ONE Administration Midazolam HCl Confirm 04/04/24 16:28 Midazolam Hcl 2 Mg/2 Ml Vial Administered 04/04/24 16:29 Dose 2 mg .ROUTE .STK-MED ONE Miscellaneous Information 1 each 04/04/24 08:15 Medication Intervention 1 Each Each 05/04/24 08:14 .RN TO CHECK ALEENA Miscellaneous Information 1 each 04/06/24 11:15 Medication Intervention 1 Each Each 05/06/24 11:14 .RN TO CHECK ALEENA Pantoprazole Sodium 40 mg 04/04/24 10:00 04/06/24 09:17 Protonix (Pantoprazole) 40 Mg Tablet PO 05/04/24 09:59 40 mg DAILY ALEENA Administration Paroxetine HCl 10 mg 04/04/24 10:00 04/06/24 09:17 Paroxetine Hcl 20 Mg Tablet PO 05/04/24 09:59 10 mg DAILY ALEENA Administration Paroxetine HCl 10 mg 04/07/24 10:00 Paroxetine Hcl 20 Mg Tablet PO 05/07/24 09:59 DAILY ALEENA Potassium Chloride 20 meq 04/04/24 07:30 04/04/24 19:19 Potassium Chloride Tab 10 Meq Tab PO 04/04/24 13:31 Not Given Q2H ALEENA Potassium Chloride 40 meq 04/05/24 06:01 04/05/24 06:07 Potassium Chloride Tab 10 Meq Tab PO 04/05/24 06:02 40 meq STAT ONE Administration Propofol 200 mg 04/04/24 16:32 Propofol 200 Mg/20 Ml Vial IV 04/04/24 16:33 .STK-MED ONE Simvastatin 40 mg 04/04/24 18:00 04/05/24 18:56 Simvastatin 20 Mg Tablet PO 05/04/24 17:59 40 mg EVENING MEAL ALEENA Administration Zolpidem Tartrate 10 mg 04/04/24 18:00 04/05/24 18:58 Zolpidem Tartrate 10 Mg Tablet PO 05/04/24 17:59 10 mg EVENING MEAL ALEENA Administration Lab/Rad Data: Laboratory Result Diagrams 04/03/24 20:16 04/03/24 20:16 Laboratory Results 04/03/24 04/03/24 04/03/24 Range/Units 20:16 20:16 20:16 WBC 10.7 H (4.23-9.07) x10^3/uL RBC 4.99 (4.63-6.08) x10^6/uL Hgb 14.1 (13.7-17.5) g/dL Hct 42.9 (40.1-51.0) % MCV 86.0 (79.0-92.2) fL MCH 28.3 (25.7-32.2) pg MCHC 32.9 (32.3-36.5) g/dL RDW 13.8 (11.6-14.4) % Plt Count 180 (163-337) x10^3/uL MPV 11.3 (9.4-12.4) fL Gran % 66.7 (34.0-67.9) % Immature Gran % (Auto) 0.2 (0.001-0.429) % Nucleat RBC Rel Count 0.0 (0.00-0.2) % Eos # (Auto) 0.11 (0.04-0.54) x10^3/uL Immature Gran # (Auto) 0.02 (0.001-0.031) x10^3u/L Absolute Lymphs (auto) 2.60 (1.32-3.57) x10^3/uL Absolute Monos (auto) 0.74 (0.30-0.82) x10^3/uL Absolute Nucleated RBC 0.00 (0.00-0.012) x10^3u/L Lymphocytes % 24.4 (21.8-53.1) % Monocytes % 6.9 (5.3-12.2) % Eosinophils % 1.0 (0.8-7.0) % Basophils % 0.8 (0.2-1.2) % Absolute Granulocytes 7.10 H (1.78-5.38) x10^3/uL Basophils # 0.08 (0.01-0.08) x10^3/uL ESR 10 (0-15) mm/hr Sodium 143 (135-145) mmol/L Potassium 3.4 L (3.5-5.1) mmol/L Chloride 105 (98-107) mmol/L Carbon Dioxide 30 (22-30) mmol/L Anion Gap 11.8 (5-15) MEQ/L BUN 15 (9-20) mg/dL Creatinine 0.90 (0.66-1.25) mg/dL Estimated GFR 98.4 ML/MIN Glucose 79 (74-106) mg/dL Lactic Acid (0.4-2.0) Calcium 9.7 (8.4-10.2) mg/dL Total Bilirubin 0.50 (0.2-1.3) mg/dL AST 61 H (17-59) U/L ALT 67 H (0-50) U/L Alkaline Phosphatase 99 (38-126) U/L Serum Total Protein 8.3 H (6.3-8.2) g/dL Albumin 4.6 (3.5-5.0) g/dL Slides for Path Review YES 04/03/24 Range/Units 20:05 WBC (4.23-9.07) x10^3/uL RBC (4.63-6.08) x10^6/uL Hgb (13.7-17.5) g/dL Hct (40.1-51.0) % MCV (79.0-92.2) fL MCH (25.7-32.2) pg MCHC (32.3-36.5) g/dL RDW (11.6-14.4) % Plt Count (163-337) x10^3/uL MPV (9.4-12.4) fL Gran % (34.0-67.9) % Immature Gran % (Auto) (0.001-0.429) % Nucleat RBC Rel Count (0.00-0.2) % Eos # (Auto) (0.04-0.54) x10^3/uL Immature Gran # (Auto) (0.001-0.031) x10^3u/L Absolute Lymphs (auto) (1.32-3.57) x10^3/uL Absolute Monos (auto) (0.30-0.82) x10^3/uL Absolute Nucleated RBC (0.00-0.012) x10^3u/L Lymphocytes % (21.8-53.1) % Monocytes % (5.3-12.2) % Eosinophils % (0.8-7.0) % Basophils % (0.2-1.2) % Absolute Granulocytes (1.78-5.38) x10^3/uL Basophils # (0.01-0.08) x10^3/uL ESR (0-15) mm/hr Sodium (135-145) mmol/L Potassium (3.5-5.1) mmol/L Chloride (98-107) mmol/L Carbon Dioxide (22-30) mmol/L Anion Gap (5-15) MEQ/L BUN (9-20) mg/dL Creatinine (0.66-1.25) mg/dL Estimated GFR ML/MIN Glucose (74-106) mg/dL Lactic Acid 1.6 (0.4-2.0) Calcium (8.4-10.2) mg/dL Total Bilirubin (0.2-1.3) mg/dL AST (17-59) U/L ALT (0-50) U/L Alkaline Phosphatase (38-126) U/L Serum Total Protein (6.3-8.2) g/dL Albumin (3.5-5.0) g/dL Slides for Path Review - Progress Progress: pain not gone completely Discussed with Dr.: Other (Dr. Anthony) Will see patient in: hospital (observation) Counseled pt/family regarding: lab results, diagnosis, need for follow-up, rad results <MARK WALDRON - Last Filed: 04/11/24 13:06> - Progress Progress Note: Patient has chronic wound of left foot that is actively draining with uncontrolled pain. He has failed multiple abx. Labs not consistent with osteo today, but would will likely need explored by podiatry. Discussed admission with Dr. Anthony who accepts. (MARK WALDRON) Medical Desision Making - Diagnostic Testing Diagnostic test were ordered, analyzed, and reviewed by me: Yes Radiological Interpretation: Interpreted by me - Risk of complications The pt has a mod risk of morbidity or mortality based on: Need for prescription drug management The pt has a high risk of morbidity or mortality based on: Decision regarding hospitilization or escalation of hosp level of care <MARK WALDRON - Last Filed: 04/11/24 13:06> <PARVEEN WARE - Last Filed: 04/03/24 18:59> - Departure Departure Disposition: Observation Critical Care Time: No <MARK WALDRON - Last Filed: 04/11/24 13:06> - Departure Clinical Impression: Wound of left foot, Intractable pain, Smoker Condition: Stable
[2024-04-03 20:21] LABS: BASOPHIL % 0.8 % (0.2-1.2); Basophil (Absolute #) 0.08 x10^3/uL (0.01-0.08); Eosinophil (Absolute #) 0.11 x10^3/uL (0.04-0.54); Hematocrit 42.9 % (40.1-51.0); Hemoglobin 14.1 g/dL (13.7-17.5); IMMATURE GRAN # 0.02 x10^3u/L (0.001-0.031); IMMATURE GRAN % 0.2 % (0.001-0.429); Lymphocytes % 24.4 % (21.8-53.1); Mean Corpuscular Hemoglobin 28.3 pg (25.7-32.2); Mean Corpuscular Hgb Concent. 32.9 g/dL (32.3-36.5); Mean Platelet Volume 11.3 fL (9.4-12.4); Monocyte (Absolute #) 0.74 x10^3/uL (0.30-0.82); Monocytes % 6.9 % (5.3-12.2); Neutrophil % 66.7 % (34.0-67.9); Platelet Count 180 x10^3/uL (163-337); Red Blood Count 4.99 x10^6/uL (4.63-6.08); Red Cell Distribution Width 13.8 % (11.6-14.4); White Blood Count 10.7 x10^3/uL (4.23-9.07)
[2024-04-03] MEDS ORDERED: NORCO 10-325 MG ONE ×2 (20:26→20:32)
[2024-04-03] MEDS: NORCO 10-325 MG PO ONE (20:26)
[2024-04-03 20:36] LABS: ALBUMIN 4.6 g/dL (3.5-5.0); ANION GAP 11.8 MEQ/L (5-15); BILIRUBIN,TOTAL 0.5 mg/dL (0.2-1.3); Calcium 9.7 mg/dL (8.4-10.2); Creatinine 1 0.9 mg/dL (0.66-1.25); EST GLOMERULAR FILTRATION RATE 98.4 ML/MIN; Potassium 3.4 mmol/L (3.5-5.1); Total Protein 8.3 g/dL (6.3-8.2)
[2024-04-03 21:43] LABS: Slide Review 1 YES
[2024-04-03] MEDS ORDERED: Maxipime 2 GM ONE (23:00)
[2024-04-03] MEDS ORDERED: Sodium Chloride 0.9% 100 ML ONE (23:00)
[2024-04-03] MEDS ORDERED: Sodium Chloride 0.9% 1000 ML 1,000 ML ONE (23:00)
[2024-04-03] MEDS: Sodium Chloride 0.9% 1000 ML 1,000 ML IV STA (23:02)
[2024-04-03] MEDS: Maxipime 2 GM** 2 G in Sodium Chloride 0.9% 100 ML IV STA (23:02)
--- NOTE | 2024-04-04 00:52 | PCM.HP ---
History of Present Illness - Chief Complaint Chief Complaint: L foot pain Date: 04/03/24 History of Present Illness: Mr. TAI is a 59 year old male with a past medical history significant for hypertension, hyperlipidemia and sleep apnea who has been dealing with left foot pain for about 3 months and despite lancing and antibiotics, has not improved. He has had increasing difficulty with ambulation and has noted increasing pain throughout his foot. He recently saw his jewelry casting model maker, Dr. Us, but feels he is not getting enough treatment, so he came to the ER for further evaluation. Initial labs were notable for a WBC count of 10.7k. He has been recommended for admission and IV antibiotics. No fever/chills. No chest pain or shortness of breath. No nausea, vomiting or diarrhea. No dysuria, hematuria or urgency. - Review of Systems Constitutional: No Fever, No Chills Eyes: No Vision Changes Ears, Nose, & Throat: No Sinus Drainage, No Painful Swallowing Respiratory: No Cough, No Orthopnea, No Short Of Breath Cardiac: No Chest Pain, No Edema, No Palpitations Abdominal/Gastrointestinal: No Abdominal Pain, No Nausea, No Vomiting, No Diarrhea Genitourinary Symptoms: No Dysuria, No Frequency, No Hematuria Musculoskeletal: No Arthralgias, No Back Pain Skin: No Cellulitis, No Rash Neurological: No Dizziness, No Headache Psychological: No Suicidal Ideations Endocrine: No Polyuria, No Polydipsia Hematologic/Lymphatic: No Blood Clots Medications & Allergies Home Medications: Home Medication List Amiodarone HCl [Pacerone] 200 mg PO DAILY 12/02/23 [History Confirmed 04/04/24] Amlodipine Besylate 5 mg [Norvasc 5 mg] 1 tab PO EVENING MEAL 12/02/23 [History Confirmed 04/04/24] Aripiprazole 10 mg [Abilify 10 MG] 1 tab PO EVENING MEAL 12/02/23 [History Confirmed 04/04/24] Aspirin EC 81 mg [Ecotrin 81 mg] 1 tab PO EVENING MEAL 12/02/23 [History Confirmed 04/04/24] Atomoxetine HCl 18 mg PO DAILY 12/02/23 [History Confirmed 04/04/24] Atorvastatin Calcium 80 mg PO EVENING MEAL 12/02/23 [History Confirmed 04/04/24] PARoxetine HCL [Paroxetine HCl] 10 mg PO DAILY 12/02/23 [History Confirmed 04/04/24] Zolpidem Tartrate 10 mg [Ambien 10 MG] 1 tab PO EVENING MEAL 12/02/23 [History Confirmed 04/04/24] Dextroamphetamine/Amphetamine [Dextroamp-Amphetamin 30 mg Tab] 30 mg PO DAILY 04/04/24 [History Confirmed 04/04/24] Hydrocodone/Acetaminophen [Hydrocodone-Acetamin 7.5-325] 1 each PO BID 04/04/24 [History Confirmed 04/04/24] PARoxetine HCL [Paroxetine HCl] 10 mg PO DAILY 04/04/24 [History Confirmed 04/04/24] Allergies/Adverse Reactions: Allergies Allergy/AdvReac Type Severity Reaction Status Date / Time Penicillins Allergy Verified 04/03/24 17:46 - Past Medical History Past Medical History: Yes Neurological History: Peripheral Neuropathy, Stroke ENT History: No Pertinent History Cardiac History: High Cholesterol, Hypertension, Myocardial Infarction ([place]) Respiratory History: Sleep Apnea Endocrine Medical History: No Pertinent History Musculoskelatal History: No Pertinent History GI Medical History: Hepatitis History: No Pertinent History Pyscho-Social History: Anxiety, Bipolar, Depression, Panic Disorder Male Reproductive Disorders: No Pertinent History - Past Surgical History Past Surgical History: Yes (collar bone fx) Neuro Surgical History: No Pertinent History Cardiac History: No Pertinent History Respiratory Surgery: No Pertinent History GI Surgical History: No Pertinent History Genitourinary Surgical Hx: No Pertinent History Musculskeletal Surgical Hx: Orthopedic Surgery Male Surgical History: No Pertinent History Other Surgical History: RT SHOULDER - Social History Smoking Status: Current every day smoker How long have you smoked: 15 years Exposure to second hand smoke: Yes Alcohol: None Drug Use: marijuana - Social Determinants of Health Will the patient participate in the screening: Yes Do you worry about a steady place to live?: Yes Do you have any problems with any of the following?: No known problems In the past 12 months,have you had to go without utilities?: No Have you or anyone in your house had to go without enough: No Transportation Issues: Yes Has anyone in your support network made you feel unsafe?: No Does the patient want assistance with any of the above?: No - Physical Exam Vital Signs: Vital Signs - 24 hr Temp Pulse Resp BP BP Pulse Ox 04/03/24 23:40 98.2 F 57 L 16 134/68 93 L 04/03/24 23:00 56 L 15 127/67 96 04/03/24 22:30 56 L 15 131/71 97 04/03/24 22:00 57 L 19 151/78 95 04/03/24 21:30 63 15 170/85 96 04/03/24 21:00 66 21 139/67 98 04/03/24 20:30 98 H 18 183/88 98 04/03/24 20:14 98 H 18 166/102 98 04/03/24 19:00 98 04/03/24 19:00 98 H 18 159/91 98 04/03/24 18:35 96 04/03/24 18:30 70 18 127/68 04/03/24 18:00 70 16 156/86 98 04/03/24 17:47 97.1 F 71 18 140/84 97 General Appearance: no apparent distress, lethargy Neurologic Exam: alert, oriented x 3 Ears, Nose, Throat Exam: dry mucous membranes Neck Exam: non-tender Respiratory Exam: No rhonchi, No wheezing Cardiovascular Exam: regular rate/rhythm Gastrointestinal/Abdomen Exam: soft Extremity Exam: No pedal edema, No swelling Skin Exam: normal color, No rash Results - Labs Lab/Micro Results: Lab Results-Last 24 Hours 04/03/24 04/03/24 04/03/24 Range/Units 20:05 20:16 20:16 WBC 10.7 H (4.23-9.07) x10^3/uL RBC 4.99 (4.63-6.08) x10^6/uL Hgb 14.1 (13.7-17.5) g/dL Hct 42.9 (40.1-51.0) % MCV 86.0 (79.0-92.2) fL MCH 28.3 (25.7-32.2) pg MCHC 32.9 (32.3-36.5) g/dL RDW 13.8 (11.6-14.4) % Plt Count 180 (163-337) x10^3/uL MPV 11.3 (9.4-12.4) fL Gran % 66.7 (34.0-67.9) % Immature Gran % (Auto) 0.2 (0.001-0.429) % Nucleat RBC Rel Count 0.0 (0.00-0.2) % Eos # (Auto) 0.11 (0.04-0.54) x10^3/uL Immature Gran # (Auto) 0.02 (0.001-0.031) x10^3u/L Absolute Lymphs (auto) 2.60 (1.32-3.57) x10^3/uL Absolute Monos (auto) 0.74 (0.30-0.82) x10^3/uL Absolute Nucleated RBC 0.00 (0.00-0.012) x10^3u/L Lymphocytes % 24.4 (21.8-53.1) % Monocytes % 6.9 (5.3-12.2) % Eosinophils % 1.0 (0.8-7.0) % Basophils % 0.8 (0.2-1.2) % Absolute Granulocytes 7.10 H (1.78-5.38) x10^3/uL Basophils # 0.08 (0.01-0.08) x10^3/uL ESR (0-15) mm/hr Sodium 143 (135-145) mmol/L Potassium 3.4 L (3.5-5.1) mmol/L Chloride 105 (98-107) mmol/L Carbon Dioxide 30 (22-30) mmol/L Anion Gap 11.8 (5-15) MEQ/L BUN 15 (9-20) mg/dL Creatinine 0.90 (0.66-1.25) mg/dL Estimated GFR 98.4 ML/MIN Glucose 79 (74-106) mg/dL Lactic Acid 1.6 (0.4-2.0) Calcium 9.7 (8.4-10.2) mg/dL Total Bilirubin 0.50 (0.2-1.3) mg/dL AST 61 H (17-59) U/L ALT 67 H (0-50) U/L Alkaline Phosphatase 99 (38-126) U/L Serum Total Protein 8.3 H (6.3-8.2) g/dL Albumin 4.6 (3.5-5.0) g/dL Slides for Path Review YES 04/03/24 Range/Units 20:16 WBC (4.23-9.07) x10^3/uL RBC (4.63-6.08) x10^6/uL Hgb (13.7-17.5) g/dL Hct (40.1-51.0) % MCV (79.0-92.2) fL MCH (25.7-32.2) pg MCHC (32.3-36.5) g/dL RDW (11.6-14.4) % Plt Count (163-337) x10^3/uL MPV (9.4-12.4) fL Gran % (34.0-67.9) % Immature Gran % (Auto) (0.001-0.429) % Nucleat RBC Rel Count (0.00-0.2) % Eos # (Auto) (0.04-0.54) x10^3/uL Immature Gran # (Auto) (0.001-0.031) x10^3u/L Absolute Lymphs (auto) (1.32-3.57) x10^3/uL Absolute Monos (auto) (0.30-0.82) x10^3/uL Absolute Nucleated RBC (0.00-0.012) x10^3u/L Lymphocytes % (21.8-53.1) % Monocytes % (5.3-12.2) % Eosinophils % (0.8-7.0) % Basophils % (0.2-1.2) % Absolute Granulocytes (1.78-5.38) x10^3/uL Basophils # (0.01-0.08) x10^3/uL ESR 10 (0-15) mm/hr Sodium (135-145) mmol/L Potassium (3.5-5.1) mmol/L Chloride (98-107) mmol/L Carbon Dioxide (22-30) mmol/L Anion Gap (5-15) MEQ/L BUN (9-20) mg/dL Creatinine (0.66-1.25) mg/dL Estimated GFR ML/MIN Glucose (74-106) mg/dL Lactic Acid (0.4-2.0) Calcium (8.4-10.2) mg/dL Total Bilirubin (0.2-1.3) mg/dL AST (17-59) U/L ALT (0-50) U/L Alkaline Phosphatase (38-126) U/L Serum Total Protein (6.3-8.2) g/dL Albumin (3.5-5.0) g/dL Slides for Path Review - Radiology Impressions Radiology Exams & Impressions: Radiology Procedures Category Date Time Status FOOT (MINIMUM 3 VIEWS) Stat Exams 04/03/24 21:39 Taken - Other Procedures and Tests Respiratory Therapy 04/04/24 00:06 Smoking Cessation Education ONCE Assessment/Plan (1) Wound of left foot Current Visit: Yes Status: Acute Assessment & Plan: L foot wound with worsening pain despite antibiotics 1. Admit to hospital 2. IV antibiotics 3. Podiatry consult 4. DVT/GI prophylaxis 5. PT eval Code(s): S91.302A - UNSPECIFIED OPEN WOUND, LEFT FOOT, INITIAL ENCOUNTER (2) Essential (primary) hypertension Current Visit: Yes Status: Acute Assessment & Plan: Slightly elevated, likely exacerbated by pain 1. Continue bp meds 2. Low Na diet 3. Monitor blood pressure readings Code(s): I10 - ESSENTIAL (PRIMARY) HYPERTENSION (3) Leukocytosis Current Visit: Yes Status: Acute Assessment & Plan: Likely from foot infection 1. Continue antibiotics 2. Follow up cultures 3. Trend WBC Code(s): D72.829 - ELEVATED WHITE BLOOD CELL COUNT, UNSPECIFIED (4) Elevated LFTs Current Visit: Yes Status: Acute Assessment & Plan: Likely medication related from statin or amiodarone 1. Hold statin for now 2. Trend LFTs 3. Consider RUQ imaging if persists Code(s): R79.89 - OTHER SPECIFIED ABNORMAL FINDINGS OF BLOOD CHEMISTRY Telemedicine Encounter - Telemedicine Encounter Telemedicine Encounter: "The entirety of this encounter was performed via Telemedicine" This visit was performed using real-time audio and video connection between my location and thepatients locationwith the assistance of a surrogateat the patients location. Written or verbal consent was obtained from the patient/guardian to perform this visit [facility] technology. Any patient questions regarding the telemedicine interaction were answered.
[2024-04-04] MEDS ORDERED: HUMALOG SQ PRN (00:55)
[2024-04-04] MEDS ORDERED: TYLENOL 325 MG PO PRN (00:55)
[2024-04-04] MEDS: VANCOMYCIN 1 GRAM/200 ML BAG 1 GM/200 ML PIGGYBACK IV SCH (02:03)
[2024-04-04] MEDS: Sodium Chloride 0.9% 1000 ML 1,000 ML IV SCH (03:33)
[2024-04-04 04:51] LABS: Absolute Neutrophil Ct (ANC) 3.86 x10^3/uL (1.78-5.38); BASOPHIL % 0.7 % (0.2-1.2); Basophil (Absolute #) 0.05 x10^3/uL (0.01-0.08); Eosinophil % 2.4 % (0.8-7.0); Eosinophil (Absolute #) 0.18 x10^3/uL (0.04-0.54); Hematocrit 37.2 % (40.1-51.0); Hemoglobin 12.4 g/dL (13.7-17.5); IMMATURE GRAN # 0.02 x10^3u/L (0.001-0.031); IMMATURE GRAN % 0.3 % (0.001-0.429); Lymphocyte (Absolute #) 2.85 x10^3/uL (1.32-3.57); Lymphocytes % 37.5 % (21.8-53.1); Mean Cell Volume 86.7 fL (79.0-92.2); Mean Corpuscular Hemoglobin 28.9 pg (25.7-32.2); Mean Corpuscular Hgb Concent. 33.3 g/dL (32.3-36.5); Mean Platelet Volume 10.4 fL (9.4-12.4); Monocyte (Absolute #) 0.64 x10^3/uL (0.30-0.82); Monocytes % 8.4 % (5.3-12.2); Neutrophil % 50.7 % (34.0-67.9); Platelet Count 229 x10^3/uL (163-337); Red Blood Count 4.29 x10^6/uL (4.63-6.08); White Blood Count 7.6 x10^3/uL (4.23-9.07)
[2024-04-04 05:21] LABS: ALBUMIN 3.5 g/dL (3.5-5.0); ANION GAP 7.3 MEQ/L (5-15); BILIRUBIN,TOTAL 0.5 mg/dL (0.2-1.3); Calcium 8.3 mg/dL (8.4-10.2); Creatinine 1 0.67 mg/dL (0.66-1.25); EST GLOMERULAR FILTRATION RATE 107.6 ML/MIN; Potassium 3.2 mmol/L (3.5-5.1); Total Protein 6.4 g/dL (6.3-8.2)
--- NOTE | 2024-04-04 05:52 | PCM.NOTE ---
Date and Time: 04/04/24 0547 Subjective Assessment: HPI: Mr. TAI is a 59 year old male with a past medical history significant for hypertension, hyperlipidemia and sleep apnea who has been dealing with left foot pain for about 3 months and despite lancing and antibiotics, has not improved admitted 04/03/24 for evaluation of his left foot wound and pain. He has had increasing difficulty with ambulation and has noted increasing pain throughout his foot. 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 Us, but feels he is not getting enough treatment, so he came to the ER for further evaluation. Initial labs were notable for a WBC count of 10.7k. He has been recommended for admission and IV antibiotics. Podiatry consulted with plan for MRI/vascular studies today if patient able to tolerate (tried this morning but became anxious), will give ativan and try again. Pending MRI results podiatry planning floating metatarsal osteotomy and wound debridement to offload as well as decrease the bacterial burden associated with this wound. IP treatment currently with Vanc/Cefepime. Wound culture of the left fifth metatarsal pending. Patient endorsing increasing anxiety of upcoming surgery. Left foot pain 5/10 on numerical pain scale. Denies fever,cough, cp, abdominal pain, CHAN, dizziness, N/V/D. - Review of Systems Constitutional: No Symptoms Eyes: No Symptoms Ears, Nose, & Throat: No Symptoms Respiratory: Short Of Breath Cardiac: No Symptoms Abdominal/Gastrointestinal: No Symptoms Genitourinary Symptoms: No Symptoms Musculoskeletal: No Symptoms Skin: Other (open wound with purulent drainage to plantar aspect left foot) Neurological: No Symptoms, Other Psychological: Anxiety Endocrine: No Symptoms Hematologic/Lymphatic: No Symptoms Immunological/Allergic: No Symptoms Objective Exam General Appearance: no apparent distress Neurologic Exam: alert, oriented x 3, cooperative Skin Exam: other (open wound with purulent drainage to plantar aspect left foot) Wound Assessment: Skin/Wound Assessment Wound/Incision Assessment Start: 04/04/24 00:06 Text: Status: Active Freq: Q6H Protocol: Document 04/04/24 00:06 LB (Rec: 04/04/24 04:28 LB [id number]) Wound/Incision Assessment Left Foot Wound Assessment Shift Assessment Wound Type infected ulcer/cellulitus Wound Stage Non Pressure Wound Drainage Amount None General Appearance Open to air Length (cm) (cm) 1 Width (cm) (cm) 0.5 Surrounding Tissue [place] Wound Photo Photo Taken Yes Date: 04/04/24 Time: 04:30 Eye Exam: PERRL Ears, Nose, Throat Exam: normal ENT inspection Neck Exam: normal inspection Respiratory Exam: normal breath sounds, lungs clear Cardiovascular Exam: regular rate/rhythm, normal heart sounds Gastrointestinal/Abdomen Exam: soft, normal bowel sounds Back Exam: normal inspection Male Genitalia Exam: deferred Rectal Exam: deferred Objective Data Vital Signs: Vital Signs - 24 hr Temp Pulse Resp BP BP Pulse Ox 04/04/24 03:33 96.6 F 59 L 18 181/83 97 04/03/24 23:40 98.2 F 57 L 16 134/68 93 L 04/03/24 23:00 56 L 15 127/67 96 04/03/24 22:30 56 L 15 131/71 97 04/03/24 22:00 57 L 19 151/78 95 04/03/24 21:30 63 15 170/85 96 04/03/24 21:00 66 21 139/67 98 04/03/24 20:30 98 H 18 183/88 98 04/03/24 20:14 98 H 18 166/102 98 04/03/24 19:00 98 04/03/24 19:00 98 H 18 159/91 98 04/03/24 18:35 96 04/03/24 18:30 70 18 127/68 04/03/24 18:00 70 16 156/86 98 04/03/24 17:47 97.1 F 71 18 140/84 97 Pain Assessment - Last Documented Pain Intensity 0 Intake and Output: Intake & Output 04/01/24 04/02/24 04/03/24 04/04/24 11:59 11:59 11:59 11:59 Intake Total 1267 Output Total 200 Balance 1067 Weight 91.6 kg Lab Results: Lab Results-Last 24 Hours 04/03/24 04/03/24 04/03/24 Range/Units 20:05 20:16 20:16 WBC 10.7 H (4.23-9.07) x10^3/uL RBC 4.99 (4.63-6.08) x10^6/uL Hgb 14.1 (13.7-17.5) g/dL Hct 42.9 (40.1-51.0) % MCV 86.0 (79.0-92.2) fL MCH 28.3 (25.7-32.2) pg MCHC 32.9 (32.3-36.5) g/dL RDW 13.8 (11.6-14.4) % Plt Count 180 (163-337) x10^3/uL MPV 11.3 (9.4-12.4) fL Gran % 66.7 (34.0-67.9) % Immature Gran % (Auto) 0.2 (0.001-0.429) % Nucleat RBC Rel Count 0.0 (0.00-0.2) % Eos # (Auto) 0.11 (0.04-0.54) x10^3/uL Immature Gran # (Auto) 0.02 (0.001-0.031) x10^3u/L Absolute Lymphs (auto) 2.60 (1.32-3.57) x10^3/uL Absolute Monos (auto) 0.74 (0.30-0.82) x10^3/uL Absolute Nucleated RBC 0.00 (0.00-0.012) x10^3u/L Lymphocytes % 24.4 (21.8-53.1) % Monocytes % 6.9 (5.3-12.2) % Eosinophils % 1.0 (0.8-7.0) % Basophils % 0.8 (0.2-1.2) % Absolute Granulocytes 7.10 H (1.78-5.38) x10^3/uL Basophils # 0.08 (0.01-0.08) x10^3/uL ESR (0-15) mm/hr Sodium 143 (135-145) mmol/L Potassium 3.4 L (3.5-5.1) mmol/L Chloride 105 (98-107) mmol/L Carbon Dioxide 30 (22-30) mmol/L Anion Gap 11.8 (5-15) MEQ/L BUN 15 (9-20) mg/dL Creatinine 0.90 (0.66-1.25) mg/dL Estimated GFR 98.4 ML/MIN Glucose 79 (74-106) mg/dL Hemoglobin A1c (4.5-6.0) % Lactic Acid 1.6 (0.4-2.0) Calcium 9.7 (8.4-10.2) mg/dL Total Bilirubin 0.50 (0.2-1.3) mg/dL AST 61 H (17-59) U/L ALT 67 H (0-50) U/L Alkaline Phosphatase 99 (38-126) U/L Serum Total Protein 8.3 H (6.3-8.2) g/dL Albumin 4.6 (3.5-5.0) g/dL Slides for Path Review YES 04/03/24 04/04/24 04/04/24 Range/Units 20:16 04:28 04:28 WBC 7.6 (4.23-9.07) x10^3/uL RBC 4.29 L (4.63-6.08) x10^6/uL Hgb 12.4 L (13.7-17.5) g/dL Hct 37.2 L (40.1-51.0) % MCV 86.7 (79.0-92.2) fL MCH 28.9 (25.7-32.2) pg MCHC 33.3 (32.3-36.5) g/dL RDW 14.0 (11.6-14.4) % Plt Count 229 (163-337) x10^3/uL MPV 10.4 (9.4-12.4) fL Gran % 50.7 (34.0-67.9) % Immature Gran % (Auto) 0.3 (0.001-0.429) % Nucleat RBC Rel Count 0.0 (0.00-0.2) % Eos # (Auto) 0.18 (0.04-0.54) x10^3/uL Immature Gran # (Auto) 0.02 (0.001-0.031) x10^3u/L Absolute Lymphs (auto) 2.85 (1.32-3.57) x10^3/uL Absolute Monos (auto) 0.64 (0.30-0.82) x10^3/uL Absolute Nucleated RBC 0.00 (0.00-0.012) x10^3u/L Lymphocytes % 37.5 (21.8-53.1) % Monocytes % 8.4 (5.3-12.2) % Eosinophils % 2.4 (0.8-7.0) % Basophils % 0.7 (0.2-1.2) % Absolute Granulocytes 3.86 (1.78-5.38) x10^3/uL Basophils # 0.05 (0.01-0.08) x10^3/uL ESR 10 (0-15) mm/hr Sodium 138 (135-145) mmol/L Potassium 3.2 L (3.5-5.1) mmol/L Chloride 106 (98-107) mmol/L Carbon Dioxide 27 (22-30) mmol/L Anion Gap 7.3 (5-15) MEQ/L BUN 13 (9-20) mg/dL Creatinine 0.67 (0.66-1.25) mg/dL Estimated GFR 107.6 ML/MIN Glucose 95 (74-106) mg/dL Hemoglobin A1c (4.5-6.0) % Lactic Acid (0.4-2.0) Calcium 8.3 L (8.4-10.2) mg/dL Total Bilirubin 0.50 (0.2-1.3) mg/dL AST 51 (17-59) U/L ALT 57 H (0-50) U/L Alkaline Phosphatase 83 (38-126) U/L Serum Total Protein 6.4 (6.3-8.2) g/dL Albumin 3.5 (3.5-5.0) g/dL Slides for Path Review 04/04/24 Range/Units 04:28 WBC (4.23-9.07) x10^3/uL RBC (4.63-6.08) x10^6/uL Hgb (13.7-17.5) g/dL Hct (40.1-51.0) % MCV (79.0-92.2) fL MCH (25.7-32.2) pg MCHC (32.3-36.5) g/dL RDW (11.6-14.4) % Plt Count (163-337) x10^3/uL MPV (9.4-12.4) fL Gran % (34.0-67.9) % Immature Gran % (Auto) (0.001-0.429) % Nucleat RBC Rel Count (0.00-0.2) % Eos # (Auto) (0.04-0.54) x10^3/uL Immature Gran # (Auto) (0.001-0.031) x10^3u/L Absolute Lymphs (auto) (1.32-3.57) x10^3/uL Absolute Monos (auto) (0.30-0.82) x10^3/uL Absolute Nucleated RBC (0.00-0.012) x10^3u/L Lymphocytes % (21.8-53.1) % Monocytes % (5.3-12.2) % Eosinophils % (0.8-7.0) % Basophils % (0.2-1.2) % Absolute Granulocytes (1.78-5.38) x10^3/uL Basophils # (0.01-0.08) x10^3/uL ESR (0-15) mm/hr Sodium (135-145) mmol/L Potassium (3.5-5.1) mmol/L Chloride (98-107) mmol/L Carbon Dioxide (22-30) mmol/L Anion Gap (5-15) MEQ/L BUN (9-20) mg/dL Creatinine (0.66-1.25) mg/dL Estimated GFR ML/MIN Glucose (74-106) mg/dL Hemoglobin A1c 5.20 (4.5-6.0) % Lactic Acid (0.4-2.0) Calcium (8.4-10.2) mg/dL Total Bilirubin (0.2-1.3) mg/dL AST (17-59) U/L ALT (0-50) U/L Alkaline Phosphatase (38-126) U/L Serum Total Protein (6.3-8.2) g/dL Albumin (3.5-5.0) g/dL Slides for Path Review Radiology Exams: Radiology Procedures Category Date Time Status ARTERIAL UNILAT/LTD LOWER EXT [US] Routine Exams 04/04/24 08:00 Ordered FOOT (MINIMUM 3 VIEWS) Stat Exams 04/03/24 21:39 Taken Assessment/Plan (1) Wound of left foot Current Visit: Yes Status: Acute Assessment & Plan: -Podiatry following-documentation reviewed- agree with plan for MRI/vascular studies today if patient able to tolerate (tried this morning but became anxious), will give ativan and try again. Pending MRI results podiatry planning floating metatarsal osteotomy and wound debridement to offload as well as decrease the bacterial burden associated with this wound - wound culture pending -Continue cefepime/vanc for now -CBC reviewed and WBC now WNL Code(s): S91.302A - UNSPECIFIED OPEN WOUND, LEFT FOOT, INITIAL ENCOUNTER (2) Hypokalemia Current Visit: Yes Status: Acute Assessment & Plan: -CMP reviewed, potassium at 3.2 -Replenish per potassium protocol -tele -monitor renal/lytes daily Code(s): E87.6 - HYPOKALEMIA (3) HLD (hyperlipidemia) Current Visit: Yes Status: Acute Assessment & Plan: -continue home regimen Code(s): E78.5 - HYPERLIPIDEMIA, UNSPECIFIED (4) HTN (hypertension) Current Visit: Yes Status: Acute Assessment & Plan: -Monitor BP closely, continue home meds amlodipine Code(s): I10 - ESSENTIAL (PRIMARY) HYPERTENSION (5) SY (obstructive sleep apnea) Current Visit: Yes Status: Acute Assessment & Plan: -noted Code(s): G47.33 - OBSTRUCTIVE SLEEP APNEA (ADULT) (PEDIATRIC) (6) Anxiety and depression Current Visit: Yes Status: Acute Assessment & Plan: -continue home abilify, paroxetine -ativan prior to MRI Code(s): F41.9 - ANXIETY DISORDER, UNSPECIFIED; F32.A - DEPRESSION, UNSPECIFIED (7) Elevated LFTs Current Visit: Yes Status: Acute Assessment & Plan: -CMP reviewed, now at baseline- continue to monitor Code(s): R79.89 - OTHER SPECIFIED ABNORMAL FINDINGS OF BLOOD CHEMISTRY (8) Leukocytosis Current Visit: Yes Status: Acute Assessment & Plan: -Secondary to wound -CBC reviewed now WNL at 7.6 -Resolved -continue cefepime/vanc Code(s): D72.829 - ELEVATED WHITE BLOOD CELL COUNT, UNSPECIFIED
[2024-04-04] MEDS: VANCOMYCIN 1 GRAM/200 ML BAG 1 GM/200 ML PIGGYBACK IV ONE (07:08)
[2024-04-04] MEDS: Klor Con PO SCH (07:54)
--- NOTE | 2024-04-04 08:00 | PCM.CONS ---
Podiatry HPI - Consult Date of Consultation Date: 04/04/24 Reason for Consult: fifth metatarsal ulcer left foot Consulting Provider: DEJAN HUNTER DPM - [facility] History of Present Illness: Mr. TAI is a 59 year old male with a past medical history significant for hypertension, hyperlipidemia and sleep apnea who has been dealing with left foot pain for about 3 months and despite lancing and antibiotics, has not improved. He has had increasing difficulty with ambulation and has noted increasing pain throughout his foot. emergency room consult states patient is known to myself however I have not seen this patient at this time he presented to the emergency department for assessment. Initial labs were notable for a WBC count of 10.7k. He has been recommended for admission and IV antibiotics. No fever/chills. No chest pain or shortness of breath. No nausea, vomiting or diarrhea. No dysuria, hematuria or urgency. Medications & Allergies Home Medications: Home Medication List Amiodarone HCl [Pacerone] 200 mg PO DAILY 12/02/23 [History Confirmed 04/04/24] Amlodipine Besylate 5 mg [Norvasc 5 mg] 1 tab PO EVENING MEAL 12/02/23 [History Confirmed 04/04/24] Aripiprazole 10 mg [Abilify 10 MG] 1 tab PO EVENING MEAL 12/02/23 [History Confirmed 04/04/24] Aspirin EC 81 mg [Ecotrin 81 mg] 1 tab PO EVENING MEAL 12/02/23 [History Confirmed 04/04/24] Atomoxetine HCl 18 mg PO DAILY 12/02/23 [History Confirmed 04/04/24] Atorvastatin Calcium 80 mg PO EVENING MEAL 12/02/23 [History Confirmed 04/04/24] PARoxetine HCL [Paroxetine HCl] 10 mg PO DAILY 12/02/23 [History Confirmed 04/04/24] Zolpidem Tartrate 10 mg [Ambien 10 MG] 1 tab PO EVENING MEAL 12/02/23 [History Confirmed 04/04/24] Dextroamphetamine/Amphetamine [Dextroamp-Amphetamin 30 mg Tab] 30 mg PO DAILY 04/04/24 [History Confirmed 04/04/24] Hydrocodone/Acetaminophen [Hydrocodone-Acetamin 7.5-325] 1 each PO BID 04/04/24 [History Confirmed 04/04/24] PARoxetine HCL [Paroxetine HCl] 10 mg PO DAILY 04/04/24 [History Confirmed 04/04/24] Allergies/Adverse Reactions: Allergies Allergy/AdvReac Type Severity Reaction Status Date / Time Penicillins Allergy Verified 04/03/24 17:46 - Past Medical History Past Medical History: Yes Neurological History: Peripheral Neuropathy, Stroke ENT History: No Pertinent History Cardiac History: High Cholesterol, Hypertension, Myocardial Infarction ([place]) Respiratory History: Sleep Apnea Endocrine Medical History: No Pertinent History Musculoskelatal History: No Pertinent History GI Medical History: Hepatitis History: No Pertinent History Pyscho-Social History: Anxiety, Bipolar, Depression, Panic Disorder Male Reproductive Disorders: No Pertinent History - Past Surgical History Past Surgical History: Yes (collar bone fx) Neuro Surgical History: No Pertinent History Cardiac History: No Pertinent History Respiratory Surgery: No Pertinent History GI Surgical History: No Pertinent History Genitourinary Surgical Hx: No Pertinent History Musculskeletal Surgical Hx: Orthopedic Surgery Male Surgical History: No Pertinent History Other Surgical History: RT SHOULDER - Social History Smoking Status: Current every day smoker How long have you smoked: 15 years Exposure to second hand smoke: Yes Alcohol: None Drug Use: marijuana - Social Determinants of Health Will the patient participate in the screening: Yes Do you worry about a steady place to live?: Yes Do you have any problems with any of the following?: No known problems In the past 12 months,have you had to go without utilities?: No Have you or anyone in your house had to go without enough: No Transportation Issues: Yes Has anyone in your support network made you feel unsafe?: No Does the patient want assistance with any of the above?: No Physical Exam - General General Appearance: no apparent distress - Neuro Neurologic: Epicritic and protopathic - Vascular Peripheral Pulses: Posterior tibialis: 2+, Dorsalis-Pedis: 2+ Capillary Refill Time: < 3 seconds - Narrative Narrative Physical Exam: Wound on plantar aspect left foot with purulent drainage measuring 0.4 x 0.5. Results - Labs Lab/Micro Results: Lab Results-Last 24 Hours 04/03/24 04/03/24 04/03/24 Range/Units 20:05 20:16 20:16 WBC 10.7 H (4.23-9.07) x10^3/uL RBC 4.99 (4.63-6.08) x10^6/uL Hgb 14.1 (13.7-17.5) g/dL Hct 42.9 (40.1-51.0) % MCV 86.0 (79.0-92.2) fL MCH 28.3 (25.7-32.2) pg MCHC 32.9 (32.3-36.5) g/dL RDW 13.8 (11.6-14.4) % Plt Count 180 (163-337) x10^3/uL MPV 11.3 (9.4-12.4) fL Gran % 66.7 (34.0-67.9) % Immature Gran % (Auto) 0.2 (0.001-0.429) % Nucleat RBC Rel Count 0.0 (0.00-0.2) % Eos # (Auto) 0.11 (0.04-0.54) x10^3/uL Immature Gran # (Auto) 0.02 (0.001-0.031) x10^3u/L Absolute Lymphs (auto) 2.60 (1.32-3.57) x10^3/uL Absolute Monos (auto) 0.74 (0.30-0.82) x10^3/uL Absolute Nucleated RBC 0.00 (0.00-0.012) x10^3u/L Lymphocytes % 24.4 (21.8-53.1) % Monocytes % 6.9 (5.3-12.2) % Eosinophils % 1.0 (0.8-7.0) % Basophils % 0.8 (0.2-1.2) % Absolute Granulocytes 7.10 H (1.78-5.38) x10^3/uL Basophils # 0.08 (0.01-0.08) x10^3/uL ESR (0-15) mm/hr Sodium 143 (135-145) mmol/L Potassium 3.4 L (3.5-5.1) mmol/L Chloride 105 (98-107) mmol/L Carbon Dioxide 30 (22-30) mmol/L Anion Gap 11.8 (5-15) MEQ/L BUN 15 (9-20) mg/dL Creatinine 0.90 (0.66-1.25) mg/dL Estimated GFR 98.4 ML/MIN Glucose 79 (74-106) mg/dL Hemoglobin A1c (4.5-6.0) % Lactic Acid 1.6 (0.4-2.0) Calcium 9.7 (8.4-10.2) mg/dL Total Bilirubin 0.50 (0.2-1.3) mg/dL AST 61 H (17-59) U/L ALT 67 H (0-50) U/L Alkaline Phosphatase 99 (38-126) U/L Serum Total Protein 8.3 H (6.3-8.2) g/dL Albumin 4.6 (3.5-5.0) g/dL Slides for Path Review YES 04/03/24 04/04/24 04/04/24 Range/Units 20:16 04:28 04:28 WBC 7.6 (4.23-9.07) x10^3/uL RBC 4.29 L (4.63-6.08) x10^6/uL Hgb 12.4 L (13.7-17.5) g/dL Hct 37.2 L (40.1-51.0) % MCV 86.7 (79.0-92.2) fL MCH 28.9 (25.7-32.2) pg MCHC 33.3 (32.3-36.5) g/dL RDW 14.0 (11.6-14.4) % Plt Count 229 (163-337) x10^3/uL MPV 10.4 (9.4-12.4) fL Gran % 50.7 (34.0-67.9) % Immature Gran % (Auto) 0.3 (0.001-0.429) % Nucleat RBC Rel Count 0.0 (0.00-0.2) % Eos # (Auto) 0.18 (0.04-0.54) x10^3/uL Immature Gran # (Auto) 0.02 (0.001-0.031) x10^3u/L Absolute Lymphs (auto) 2.85 (1.32-3.57) x10^3/uL Absolute Monos (auto) 0.64 (0.30-0.82) x10^3/uL Absolute Nucleated RBC 0.00 (0.00-0.012) x10^3u/L Lymphocytes % 37.5 (21.8-53.1) % Monocytes % 8.4 (5.3-12.2) % Eosinophils % 2.4 (0.8-7.0) % Basophils % 0.7 (0.2-1.2) % Absolute Granulocytes 3.86 (1.78-5.38) x10^3/uL Basophils # 0.05 (0.01-0.08) x10^3/uL ESR 10 (0-15) mm/hr Sodium 138 (135-145) mmol/L Potassium 3.2 L (3.5-5.1) mmol/L Chloride 106 (98-107) mmol/L Carbon Dioxide 27 (22-30) mmol/L Anion Gap 7.3 (5-15) MEQ/L BUN 13 (9-20) mg/dL Creatinine 0.67 (0.66-1.25) mg/dL Estimated GFR 107.6 ML/MIN Glucose 95 (74-106) mg/dL Hemoglobin A1c (4.5-6.0) % Lactic Acid (0.4-2.0) Calcium 8.3 L (8.4-10.2) mg/dL Total Bilirubin 0.50 (0.2-1.3) mg/dL AST 51 (17-59) U/L ALT 57 H (0-50) U/L Alkaline Phosphatase 83 (38-126) U/L Serum Total Protein 6.4 (6.3-8.2) g/dL Albumin 3.5 (3.5-5.0) g/dL Slides for Path Review 04/04/24 Range/Units 04:28 WBC (4.23-9.07) x10^3/uL RBC (4.63-6.08) x10^6/uL Hgb (13.7-17.5) g/dL Hct (40.1-51.0) % MCV (79.0-92.2) fL MCH (25.7-32.2) pg MCHC (32.3-36.5) g/dL RDW (11.6-14.4) % Plt Count (163-337) x10^3/uL MPV (9.4-12.4) fL Gran % (34.0-67.9) % Immature Gran % (Auto) (0.001-0.429) % Nucleat RBC Rel Count (0.00-0.2) % Eos # (Auto) (0.04-0.54) x10^3/uL Immature Gran # (Auto) (0.001-0.031) x10^3u/L Absolute Lymphs (auto) (1.32-3.57) x10^3/uL Absolute Monos (auto) (0.30-0.82) x10^3/uL Absolute Nucleated RBC (0.00-0.012) x10^3u/L Lymphocytes % (21.8-53.1) % Monocytes % (5.3-12.2) % Eosinophils % (0.8-7.0) % Basophils % (0.2-1.2) % Absolute Granulocytes (1.78-5.38) x10^3/uL Basophils # (0.01-0.08) x10^3/uL ESR (0-15) mm/hr Sodium (135-145) mmol/L Potassium (3.5-5.1) mmol/L Chloride (98-107) mmol/L Carbon Dioxide (22-30) mmol/L Anion Gap (5-15) MEQ/L BUN (9-20) mg/dL Creatinine (0.66-1.25) mg/dL Estimated GFR ML/MIN Glucose (74-106) mg/dL Hemoglobin A1c 5.20 (4.5-6.0) % Lactic Acid (0.4-2.0) Calcium (8.4-10.2) mg/dL Total Bilirubin (0.2-1.3) mg/dL AST (17-59) U/L ALT (0-50) U/L Alkaline Phosphatase (38-126) U/L Serum Total Protein (6.3-8.2) g/dL Albumin (3.5-5.0) g/dL Slides for Path Review - Radiology Impressions Radiology Exams & Impressions: Radiology Procedures Category Date Time Status ARTERIAL UNILAT/LTD LOWER EXT [US] Routine Exams 04/04/24 08:00 Ordered FOOT (MINIMUM 3 VIEWS) Stat Exams 04/03/24 21:39 Taken - Other Procedures and Tests Respiratory Therapy 04/04/24 00:06 Smoking Cessation Education ONCE Assessment/Plan (1) HLD (hyperlipidemia) Current Visit: Yes Status: Acute Code(s): E78.5 - HYPERLIPIDEMIA, UNSPECIFIED (2) HTN (hypertension) Current Visit: Yes Status: Acute Code(s): I10 - ESSENTIAL (PRIMARY) HYPERTENSION (3) Leukocytosis Current Visit: Yes Status: Acute Code(s): D72.829 - ELEVATED WHITE BLOOD CELL COUNT, UNSPECIFIED (4) Smoker Current Visit: Yes Status: Acute Code(s): F17.200 - NICOTINE DEPENDENCE, UNSPECIFIED, UNCOMPLICATED (5) Wound of left foot Current Visit: Yes Status: Acute Assessment & Plan: Initial patient examination evaluation. Radiographs reviewed and discussed with patient demonstrating an accessory ossicle versus overload of the fifth metatarsal which likely is making this problem worse. Culture obtained of left fifth metatarsal site Vascular studies could be obtained. Given patient's intractable pain as well as infection would like to proceed with a floating metatarsal osteotomy and wound debridement in an OR setting in order to offload as well as decrease the bacterial burden associated with this wound. Continue IV antibiotics medicine team managing at the moment Pain management as medicine team she is appropriate 2 OR this afternoon keep n.p.o. Code(s): S91.302A - UNSPECIFIED OPEN WOUND, LEFT FOOT, INITIAL ENCOUNTER
[2024-04-04] MEDS ORDERED: MEDICATION INTERVENTION MC SCH (08:15)
--- NOTE | 2024-04-04 08:50 | XRAY ---
Indication: Pain. Comparison: None 3 nonweightbearing views left foot demonstrates osteopenia, mild 1st MTP degenerative changes, tiny posterior heel spur, soft tissue swelling lateral to 5th MTP, extensive vascular calcifications, and incidental navicular accessory ossicle. No other bony, articular, or soft tissue abnormalities.
[2024-04-04] MEDS: Cordarone 200 MG PO SCH (09:57)
[2024-04-04] MEDS: NORCO 7.5/325 MG TAB PO SCH (09:57)
[2024-04-04] MEDS: HEPARIN 5000 UNITS/0.5 ML (HIGH RISK MED) SQ SCH (09:57)
[2024-04-04] MEDS: Protonix 40MG Tablet PO SCH (09:58)
[2024-04-04] MEDS: MAXIPIME 1 GM** 1 G in Dextrose 5%/Water IV Soln. 100ML PLUS BAG 100 ML IV SCH (10:00)
[2024-04-04] MEDS ORDERED: ATOMOXETINE HCL 18 MG PO SCH (10:00)
[2024-04-04] MEDS ORDERED: Xylocaine 1% Vial 30 ML PF IJ ONE (11:09)
[2024-04-04] MEDS ORDERED: Marcaine Mpf 0.5% Vial 30 Ml ONE (11:09)
[2024-04-04] MEDS: VANCOMYCIN 1.25 GM/250 ML BAG 1.25 GM/250 ML PIGGYBACK IV SCH (12:10)
--- NOTE | 2024-04-04 12:36 | XRAY ---
Indication: Peripheral arterial struct disease. Left foot pain. Two-dimensional sonogram and color Doppler imaging major arteries left leg performed. Comparison: None A widely patent deep femoral and proximal superficial femoral arteries. Minimal/mild scattered arteriosclerotic disease in remaining common femoral, mid to distal superficial femoral, posterior tibial, and dorsal pedal arteries. Arterial waveforms are multiphasic throughout left leg. Left arm brachial pressure is 156. Left ankle pressure is 167. Ankle brachial index is 1.1, normal. Impression: Scattered arteriosclerotic disease as detailed without critical stenosis/obstruction. Normal ANJU.
[2024-04-04] MEDS: Ativan 2 MG/1 ML VIAL IV ONE (14:42)
[2024-04-04] MEDS: Paxil 20 MG PO SCH (15:08)
[2024-04-04] MEDS ORDERED: SUBLIMAZE 100 MCG/2 ML ONE (16:28)
[2024-04-04] MEDS ORDERED: Xylocaine-Mpf 2% 5 Ml Vial ONE (16:28)
[2024-04-04] MEDS ORDERED: Versed 2 MG/2 ML Injection ONE (16:28)
[2024-04-04] MEDS ORDERED: DEXMEDETOMIDINE 80 MCG/20ML-NS IV ONE (16:29)
[2024-04-04] MEDS ORDERED: ROBINUL ONE (16:51)
[2024-04-04] MEDS: Abilify 10 MG PO SCH (18:06)
[2024-04-04] MEDS: ECOTRIN 81 MG PO SCH (18:06)
[2024-04-04] MEDS: ZOCOR 20MG PO SCH (18:07)
[2024-04-04] MEDS: NORVASC 5 MG PO SCH (18:07)
[2024-04-04] MEDS: NORCO 5/325 MG PO PRN (19:39)
[2024-04-04] MEDS: Ambien 10 MG PO SCH (21:08)
[2024-04-05 05:31] LABS: Absolute Neutrophil Ct (ANC) 5.34 x10^3/uL (1.78-5.38); BASOPHIL % 0.6 % (0.2-1.2); Basophil (Absolute #) 0.05 x10^3/uL (0.01-0.08); Eosinophil % 2.2 % (0.8-7.0); Eosinophil (Absolute #) 0.17 x10^3/uL (0.04-0.54); Hematocrit 38.3 % (40.1-51.0); Hemoglobin 12.6 g/dL (13.7-17.5); IMMATURE GRAN # 0.02 x10^3u/L (0.001-0.031); IMMATURE GRAN % 0.3 % (0.001-0.429); Lymphocyte (Absolute #) 1.67 x10^3/uL (1.32-3.57); Lymphocytes % 21.1 % (21.8-53.1); Mean Cell Volume 85.7 fL (79.0-92.2); Mean Corpuscular Hemoglobin 28.2 pg (25.7-32.2); Mean Corpuscular Hgb Concent. 32.9 g/dL (32.3-36.5); Mean Platelet Volume 10.6 fL (9.4-12.4); Monocyte (Absolute #) 0.65 x10^3/uL (0.30-0.82); Monocytes % 8.2 % (5.3-12.2); Neutrophil % 67.6 % (34.0-67.9); Platelet Count 220 x10^3/uL (163-337); Red Blood Count 4.47 x10^6/uL (4.63-6.08); Red Cell Distribution Width 13.7 % (11.6-14.4); White Blood Count 7.9 x10^3/uL (4.23-9.07)
[2024-04-05 05:46] LABS: ALBUMIN 3.6 g/dL (3.5-5.0); ANION GAP 8.9 MEQ/L (5-15); BILIRUBIN,TOTAL 0.5 mg/dL (0.2-1.3); Calcium 8.6 mg/dL (8.4-10.2); Creatinine 1 0.85 mg/dL (0.66-1.25); EST GLOMERULAR FILTRATION RATE 100.1 ML/MIN; Total Protein 6.6 g/dL (6.3-8.2)
[2024-04-05] MEDS: Klor Con PO ONE (06:07)
--- NOTE | 2024-04-05 08:18 | XRAY ---
Indication: Left 5th metatarsal bone debridement. Intraoperative fluoroscopy provided for 11 seconds. 3 digital spot images submitted for interpretation demonstrates osteotomy distal shaft 5th metatarsal. Correlate with intraoperative findings/report.
--- NOTE | 2024-04-05 09:30 | XRAY ---
11 seconds of fluoroscopy used in surgery for a left 5th metatarsal bone debridement.
--- NOTE | 2024-04-05 09:42 | OP ---
SURGERY DATE/TIME: 04/04/2024 [id number] PREOPERATIVE DIAGNOSES: 1) Overload fifth metatarsal left foot. 2) Foot ulcer secondary to pressure to level of subcutaneous tissue. POSTOPERATIVE DIAGNOSES: 1) Overload fifth metatarsal left foot. 2) Foot ulcer secondary to pressure to level of subcutaneous tissue. PROCEDURE: Wound debridement left foot and floating metatarsal osteotomy left fifth metatarsal. SURGEON: Magen Mejia DPM FINISH FILER: None. ANESTHESIA: Monitored anesthesia care with intraoperative local block consisting of 10 mL of 1:1 mixture of 1% lidocaine plain and 0.5% bupivacaine plain and directed in a mini Villarreal block type fashion. HEMOSTASIS: Pressure dressing. ESTIMATED BLOOD LOSS: Approximately 1 mL. MATERIALS: 3-0 nylon. INJECTABLES: 10 mL of a 1:1 mixture of 1% lidocaine plain and 0.5% bupivacaine plain injected in a mini Villarreal block type fashion. INDICATIONS: The patient is a very pleasant 59-year-old male who has been seen by his primary care for a wound on the plantar aspect of his left foot. While awaiting consult, patient's pain had become intractable and he has developed an infection underneath the fifth metatarsal and presented to the emergency department. At this time, the patient is a mildly neuropathic patient. However, non-diabetic and is having significant pain likely secondary to high cavus foot with lateral column overload. Options were discussed with the patient as this issue is chronic with development of the wound. Options were discussed in regards to a floating metatarsal osteotomy. Patient is willing to proceed at this time with wound debridement and IV and oral antibiotics to treat the infection. X-ray was taken demonstrating no significant indications of osteomyelitis. MRI was unable to be performed due to patient anxiety. From that standpoint, all risks were once again iterated and patient would like to proceed. The patient has been made aware of all risks, complications and benefits of surgical intervention at this time including, but not limited to infection, hematoma, seroma, possibility of delayed wound healing, nonwound healing, and possible need for further surgical intervention at a later date. No guarantees were provided as to the outcome of surgical intervention. Plenty of time was left for the patient to ask questions which were answered to his apparent satisfaction at this time. From that standpoint, patient understands and wishes to proceed. DESCRIPTION OF PROCEDURE AND FINDINGS: The patient was brought into the operating room and placed on the operating room table in the supine position. At this time, monitored anesthesia care was administered until the patient was adequately sedated. The left lower extremity was prepped and draped in the typical sterile fashion and lowered onto the surgical field. At this time, a 10 mL block consisting of a 1:1 mixture of 1% lidocaine plain and 0.5% bupivacaine plain was injected in a mini Villarreal block localizing the area. After a sufficient amount of time, wound was debrided on the plantar aspect of the left foot with a wound debridement postoperative measurement demonstrating 0.3 x 0.4 with a negative probe to bone. Cultures were obtained at this time and copious amounts of sterile saline were utilized to flush the surgical site. At this time, under fluoroscopic guidance, an 18-mm sagittal saw was utilized after making a stab incision on the dorsal lateral aspect of the foot carrying this down with a curve mini hemostat to the level of the fifth metatarsal neck. From that standpoint, the 18-mm sagittal saw was cut perpendicular to the weightbearing access and allowed to float. This was confirmed under fluoroscopic guidance. This area was flushed with copious amounts of sterile saline and then a 3-0 nylon was utilized to stitch the small open site. From that standpoint, a compression dressing was applied consisting of Betadine, Adaptic, 4 x 4, Kerlix, and Rogelio to the left lower extremity. Patient was then reversed from anesthesia and returned to the postoperative anesthesia care unit with vital signs stable and vascular status intact. Patient handled the anesthesia as well as the procedure without significant complication. Postoperative orders as indicated in the patient's discharge chart.
--- NOTE | 2024-04-05 12:26 | PCM.NOTE ---
Date and Time: 04/05/24 1221 Subjective Assessment: Patient reports moderate pain in foot. No other complaints. He denies dyspnea or cough. No chest pain. No abdominal pain, nausea or vomiting. - Review of Systems Constitutional: No Symptoms, No Fever, No Chills Eyes: No Symptoms Ears, Nose, & Throat: No Symptoms Respiratory: No Symptoms, No Cough, No Short Of Breath Cardiac: No Symptoms, No Chest Pain, No Edema Abdominal/Gastrointestinal: No Symptoms, No Abdominal Pain, No Nausea, No Vomiting, No Diarrhea Genitourinary Symptoms: No Symptoms, No Dysuria, No Frequency Musculoskeletal: No Symptoms Skin: No Symptoms Neurological: No Symptoms Psychological: No Symptoms Endocrine: No Symptoms Hematologic/Lymphatic: No Symptoms Immunological/Allergic: No Symptoms All Other Systems: Reviewed and Negative Objective Exam General Appearance: mild distress Neurologic Exam: alert, oriented x 3, cooperative Skin Exam: normal color, warm, dry Wound Assessment: Skin/Wound Assessment Wound/Incision Assessment Start: 04/04/24 00:06 Text: Status: Active Freq: Q6H Protocol: Document 04/05/24 08:00 AR (Rec: 04/05/24 11:22 AR [id number]) Wound/Incision Assessment Left Foot Wound Assessment Shift Assessment Wound Type DEBRIDEMENT Wound Stage Non Pressure Wound Dressing Status Dry & Intact Drainage Amount None Comment DR. WYLIE DRESSING, CLEAN, DRY AND INTACT, REMAINS TRUE Wound Photo Photo Taken No Eye Exam: PERRL, EOMI Ears, Nose, Throat Exam: normal ENT inspection Neck Exam: normal inspection Lymphatic Exam: No adenopathy Respiratory Exam: normal breath sounds, lungs clear Cardiovascular Exam: regular rate/rhythm, normal heart sounds Gastrointestinal/Abdomen Exam: soft, normal bowel sounds, No tenderness Extremity Exam: normal inspection Back Exam: normal inspection Male Genitalia Exam: deferred Rectal Exam: deferred Objective Data Vital Signs: Vital Signs - 24 hr Temp Pulse Resp BP Pulse Ox 04/05/24 11:18 96.8 F 66 17 163/91 96 04/05/24 07:14 97.4 F 56 L 16 157/70 95 04/05/24 04:00 97.1 F 59 L 18 134/60 94 L 04/04/24 23:21 98.0 F 59 L 16 124/70 97 04/04/24 19:29 96.7 F 60 16 176/81 98 04/04/24 16:00 97.6 F 59 L 16 193/96 99 04/04/24 14:42 54 L 16 Pain Assessment - Last Documented Pain Intensity 8 Pain Scale Used 0-10 Pain Scale Intake and Output: Intake & Output 04/03/24 04/04/24 04/05/24 04/06/24 11:59 11:59 11:59 11:59 Intake Total 1507 1821 Output Total 1375 1450 Balance 132 371 Weight 91.6 kg Lab Results: Lab Results-Last 24 Hours 04/04/24 04/05/24 04/05/24 Range/Units 13:57 05:20 05:20 WBC 7.9 (4.23-9.07) x10^3/uL RBC 4.47 L (4.63-6.08) x10^6/uL Hgb 12.6 L (13.7-17.5) g/dL Hct 38.3 L (40.1-51.0) % MCV 85.7 (79.0-92.2) fL MCH 28.2 (25.7-32.2) pg MCHC 32.9 (32.3-36.5) g/dL RDW 13.7 (11.6-14.4) % Plt Count 220 (163-337) x10^3/uL MPV 10.6 (9.4-12.4) fL Gran % 67.6 (34.0-67.9) % Immature Gran % (Auto) 0.3 (0.001-0.429) % Nucleat RBC Rel Count 0.0 (0.00-0.2) % Eos # (Auto) 0.17 (0.04-0.54) x10^3/uL Immature Gran # (Auto) 0.02 (0.001-0.031) x10^3u/L Absolute Lymphs (auto) 1.67 (1.32-3.57) x10^3/uL Absolute Monos (auto) 0.65 (0.30-0.82) x10^3/uL Absolute Nucleated RBC 0.00 (0.00-0.012) x10^3u/L Lymphocytes % 21.1 L (21.8-53.1) % Monocytes % 8.2 (5.3-12.2) % Eosinophils % 2.2 (0.8-7.0) % Basophils % 0.6 (0.2-1.2) % Absolute Granulocytes 5.34 (1.78-5.38) x10^3/uL Basophils # 0.05 (0.01-0.08) x10^3/uL Sodium 137 (135-145) mmol/L Potassium 3.7 3.0 L* (3.5-5.1) mmol/L Chloride 106 (98-107) mmol/L Carbon Dioxide 24 (22-30) mmol/L Anion Gap 8.9 (5-15) MEQ/L BUN 12 (9-20) mg/dL Creatinine 0.85 (0.66-1.25) mg/dL Estimated GFR 100.1 ML/MIN Glucose 101 (74-106) mg/dL Calcium 8.6 (8.4-10.2) mg/dL Magnesium (1.6-2.3) mg/dL Total Bilirubin 0.50 (0.2-1.3) mg/dL AST 57 (17-59) U/L ALT 62 H (0-50) U/L Alkaline Phosphatase 99 (38-126) U/L Serum Total Protein 6.6 (6.3-8.2) g/dL Albumin 3.6 (3.5-5.0) g/dL 04/05/24 Range/Units 05:58 WBC (4.23-9.07) x10^3/uL RBC (4.63-6.08) x10^6/uL Hgb (13.7-17.5) g/dL Hct (40.1-51.0) % MCV (79.0-92.2) fL MCH (25.7-32.2) pg MCHC (32.3-36.5) g/dL RDW (11.6-14.4) % Plt Count (163-337) x10^3/uL MPV (9.4-12.4) fL Gran % (34.0-67.9) % Immature Gran % (Auto) (0.001-0.429) % Nucleat RBC Rel Count (0.00-0.2) % Eos # (Auto) (0.04-0.54) x10^3/uL Immature Gran # (Auto) (0.001-0.031) x10^3u/L Absolute Lymphs (auto) (1.32-3.57) x10^3/uL Absolute Monos (auto) (0.30-0.82) x10^3/uL Absolute Nucleated RBC (0.00-0.012) x10^3u/L Lymphocytes % (21.8-53.1) % Monocytes % (5.3-12.2) % Eosinophils % (0.8-7.0) % Basophils % (0.2-1.2) % Absolute Granulocytes (1.78-5.38) x10^3/uL Basophils # (0.01-0.08) x10^3/uL Sodium (135-145) mmol/L Potassium (3.5-5.1) mmol/L Chloride (98-107) mmol/L Carbon Dioxide (22-30) mmol/L Anion Gap (5-15) MEQ/L BUN (9-20) mg/dL Creatinine (0.66-1.25) mg/dL Estimated GFR ML/MIN Glucose (74-106) mg/dL Calcium (8.4-10.2) mg/dL Magnesium 1.8 (1.6-2.3) mg/dL Total Bilirubin (0.2-1.3) mg/dL AST (17-59) U/L ALT (0-50) U/L Alkaline Phosphatase (38-126) U/L Serum Total Protein (6.3-8.2) g/dL Albumin (3.5-5.0) g/dL Radiology Exams: Radiology Procedures Category Date Time Status ARTERIAL UNILAT/LTD LOWER EXT [US] Routine Exams 04/04/24 08:00 Completed FLUOROSCOPY UP TO 1 HR Routine Exams 04/04/24 09:04 Completed FOOT (MINIMUM 3 VIEWS) Routine Exams 04/04/24 09:04 Completed FOOT (MINIMUM 3 VIEWS) Stat Exams 04/03/24 21:39 Completed Multi-Disciplinary Progress Notes: Multi-Disciplinary Progress Notes 04/05/24 11:59 Physical Therapy Note by Shu(Clara#[id number]),Neda SPOKE W/ PT. THIS A.M. RE: EQIUPMENT AND D/C PLANS. PT. HAS FWW AT HOME. PT. HAS CRITICALLY LOW K+ AND DOES NOT HAVE BOOT FROM PODIATRY TO INITIATE PWB L LE. WILL ASSESS TRANSFERS ON 04/07. PT. CAN TRANSFER W/ ASSIST OF NSG IF K+ IMPROVES AND IF HE GETS APPROPRIATE BOOT FROM PODIATRY. Initialized on 04/05/24 11:59 - END OF NOTE 04/04/24 14:19 Physical Therapy Note by Shu(L#[id number])Neda P.T. ORDERS RECEIVED PRIOR TO SX W/ PODIATRY THIS DATE. WILL AWAIT WB ORDERS FROM DR. WYLIE AND HOLD P.T. TODAY. Initialized on 04/04/24 14:19 - END OF NOTE Assessment/Plan (1) Wound of left foot Current Visit: Yes Status: Acute Assessment & Plan: Assessment/Plan (1) Wound of left foot Current Visit: Yes Status: Acute Assessment & Plan: -Post op debridement -Continue IV antibiotics -Pain control -Discuss with Podiatry when he can go home (2) Hypokalemia Current Visit: Yes Status: Acute Assessment & Plan: -K=3.0 -Replacement protocol ordered (3) HLD (hyperlipidemia) Current Visit: Yes Status: Acute Assessment & Plan: -continue home meds (4) HTN (hypertension) Current Visit: Yes Status: Acute Assessment & Plan: -Continue home meds: amlodipine (5) SY (obstructive sleep apnea) Current Visit: Yes Status: Acute Assessment & Plan: -noted (6) Anxiety and depression Current Visit: Yes Status: Acute Assessment & Plan: -continue home abilify, paroxetine (7) Elevated LFTs Current Visit: Yes Status: Acute Assessment & Plan: -CMP reviewed, now at baseline- continue to monitor Code(s): S91.302A - UNSPECIFIED OPEN WOUND, LEFT FOOT, INITIAL ENCOUNTER Telemedicine Encounter - Telemedicine Encounter Telemedicine Encounter: "The entirety of this encounter was performed via Telemedicine" This visit was performed using real-time audio and video connection between my location and thepatients locationwith the assistance of a surrogateat the patients location. Written or verbal consent was obtained from the patient/guardian to perform this visit [email or web address] technology. Any patient questions regarding the telemedicine interaction were answered.
[2024-04-06 07:20] VITALS: RESP 16
[2024-04-06 07:42] LABS: Absolute Neutrophil Ct (ANC) 5.31 x10^3/uL (1.78-5.38); BASOPHIL % 0.5 % (0.2-1.2); Basophil (Absolute #) 0.04 x10^3/uL (0.01-0.08); Eosinophil (Absolute #) 0.16 x10^3/uL (0.04-0.54); Hematocrit 38.7 % (40.1-51.0); Hemoglobin 12.7 g/dL (13.7-17.5); IMMATURE GRAN # 0.02 x10^3u/L (0.001-0.031); IMMATURE GRAN % 0.3 % (0.001-0.429); Lymphocyte (Absolute #) 1.71 x10^3/uL (1.32-3.57); Lymphocytes % 21.6 % (21.8-53.1); Mean Cell Volume 86.6 fL (79.0-92.2); Mean Corpuscular Hemoglobin 28.4 pg (25.7-32.2); Mean Corpuscular Hgb Concent. 32.8 g/dL (32.3-36.5); Monocyte (Absolute #) 0.68 x10^3/uL (0.30-0.82); Monocytes % 8.6 % (5.3-12.2); Platelet Count 185 x10^3/uL (163-337); Red Blood Count 4.47 x10^6/uL (4.63-6.08); Red Cell Distribution Width 13.7 % (11.6-14.4); White Blood Count 7.9 x10^3/uL (4.23-9.07)
[2024-04-06 07:59] LABS: ALBUMIN 3.5 g/dL (3.5-5.0); ANION GAP 10.1 MEQ/L (5-15); BILIRUBIN,TOTAL 0.6 mg/dL (0.2-1.3); Calcium 8.9 mg/dL (8.4-10.2); Creatinine 1 0.77 mg/dL (0.66-1.25); EST GLOMERULAR FILTRATION RATE 103.1 ML/MIN; MAGNESIUM 1.7 mg/dL (1.6-2.3); Potassium 3.7 mmol/L (3.5-5.1); Total Protein 6.3 g/dL (6.3-8.2)
--- NOTE | 2024-04-06 10:54 | PCM.DS ---
Discharge Summary Date of Admission: 04/03/24 23:05 Date of Discharge: 04/06/2024 Admitting Physician: CARLITOS DIAZ MD Consults: Consults on Case 04/03/24 23:45 Consult Podiatry ROUTINE Primary Care Provider: NO FAMILY DOCTOR Allergies Allergies Penicillins Allergy (Verified 04/03/24 17:46) Hospital Summary - Hospital Course Hospital Course: This patient was admitted with a wound infection left foot. He was treated with IV Cefepime and Vancomycin. He was seen by Podiatry. He underwent metatarsal osteotomy and debridement of wound. His pain improved. He was cleared by Podiatry for discharge. Wound cultures showed no growth. The patient will be dismissed with oral Doxycycline. He will follow up outpatient with Podiatry. Patient is dismissed on 04/06/24. - Vitals & Intake/Output Vital Signs: Vital Signs Temperature 98.2 F 04/06/24 07:00 Pulse Rate 55 L 04/06/24 07:00 Respiratory Rate 16 04/06/24 07:00 Blood Pressure 137/65 04/06/24 07:00 O2 Sat by Pulse Oximetry 94 L 04/06/24 07:00 Intake & Output: Intake & Output 04/03/24 04/04/24 04/05/24 04/06/24 11:59 11:59 11:59 11:59 Intake Total 1507 1821 2021 Output Total 1375 1450 1525 Balance 132 371 497 Weight 91.6 kg - Lab Result Diagrams: 04/06/24 07:25 04/06/24 07:25 Lab Results-Last 24 Hrs: Lab Results-Last 24 Hours 04/05/24 04/05/24 04/06/24 Range/Units 12:35 16:35 07:25 WBC 7.9 (4.23-9.07) x10^3/uL RBC 4.47 L (4.63-6.08) x10^6/uL Hgb 12.7 L (13.7-17.5) g/dL Hct 38.7 L (40.1-51.0) % MCV 86.6 (79.0-92.2) fL MCH 28.4 (25.7-32.2) pg MCHC 32.8 (32.3-36.5) g/dL RDW 13.7 (11.6-14.4) % Plt Count 185 (163-337) x10^3/uL MPV 11.0 (9.4-12.4) fL Gran % 67.0 (34.0-67.9) % Immature Gran % (Auto) 0.3 (0.001-0.429) % Nucleat RBC Rel Count 0.0 (0.00-0.2) % Eos # (Auto) 0.16 (0.04-0.54) x10^3/uL Immature Gran # (Auto) 0.02 (0.001-0.031) x10^3u/L Absolute Lymphs (auto) 1.71 (1.32-3.57) x10^3/uL Absolute Monos (auto) 0.68 (0.30-0.82) x10^3/uL Absolute Nucleated RBC 0.00 (0.00-0.012) x10^3u/L Lymphocytes % 21.6 L (21.8-53.1) % Monocytes % 8.6 (5.3-12.2) % Eosinophils % 2.0 (0.8-7.0) % Basophils % 0.5 (0.2-1.2) % Absolute Granulocytes 5.31 (1.78-5.38) x10^3/uL Basophils # 0.04 (0.01-0.08) x10^3/uL Sodium (135-145) mmol/L Potassium 3.7 D 3.8 (3.5-5.1) mmol/L Chloride (98-107) mmol/L Carbon Dioxide (22-30) mmol/L Anion Gap (5-15) MEQ/L BUN (9-20) mg/dL Creatinine (0.66-1.25) mg/dL Estimated GFR ML/MIN Glucose (74-106) mg/dL Calcium (8.4-10.2) mg/dL Magnesium (1.6-2.3) mg/dL Total Bilirubin (0.2-1.3) mg/dL AST (17-59) U/L ALT (0-50) U/L Alkaline Phosphatase (38-126) U/L Serum Total Protein (6.3-8.2) g/dL Albumin (3.5-5.0) g/dL 04/06/24 Range/Units 07:25 WBC (4.23-9.07) x10^3/uL RBC (4.63-6.08) x10^6/uL Hgb (13.7-17.5) g/dL Hct (40.1-51.0) % MCV (79.0-92.2) fL MCH (25.7-32.2) pg MCHC (32.3-36.5) g/dL RDW (11.6-14.4) % Plt Count (163-337) x10^3/uL MPV (9.4-12.4) fL Gran % (34.0-67.9) % Immature Gran % (Auto) (0.001-0.429) % Nucleat RBC Rel Count (0.00-0.2) % Eos # (Auto) (0.04-0.54) x10^3/uL Immature Gran # (Auto) (0.001-0.031) x10^3u/L Absolute Lymphs (auto) (1.32-3.57) x10^3/uL Absolute Monos (auto) (0.30-0.82) x10^3/uL Absolute Nucleated RBC (0.00-0.012) x10^3u/L Lymphocytes % (21.8-53.1) % Monocytes % (5.3-12.2) % Eosinophils % (0.8-7.0) % Basophils % (0.2-1.2) % Absolute Granulocytes (1.78-5.38) x10^3/uL Basophils # (0.01-0.08) x10^3/uL Sodium 140 (135-145) mmol/L Potassium 3.7 (3.5-5.1) mmol/L Chloride 109 H (98-107) mmol/L Carbon Dioxide 24 (22-30) mmol/L Anion Gap 10.1 (5-15) MEQ/L BUN 9 (9-20) mg/dL Creatinine 0.77 (0.66-1.25) mg/dL Estimated GFR 103.1 ML/MIN Glucose 98 (74-106) mg/dL Calcium 8.9 (8.4-10.2) mg/dL Magnesium 1.7 (1.6-2.3) mg/dL Total Bilirubin 0.60 (0.2-1.3) mg/dL AST 63 H (17-59) U/L ALT 66 H (0-50) U/L Alkaline Phosphatase 105 (38-126) U/L Serum Total Protein 6.3 (6.3-8.2) g/dL Albumin 3.5 (3.5-5.0) g/dL Micro Results-Entire Visit: Microbiology 04/04/24 17:06 Anaerobic Culture Result 1 - Final Soft Tissue Not Reportable Anaerobic Culture Result 2 - Final Not Reportable Anaerobic Culture Result 3 - Final Not Reportable Anaerobic Culture Result 4 - Final Not Reportable Antimicrobic Susceptibility - Final Not Reportable Aerobic Culture Result 1 - Final Not Reportable Aerobic Culture Result 2 - Final Not Reportable - Final Not Reportable Aerobic Culture Result 4 - Final Not Reportable Aerobic & Anaerobic Susceptibility - Final Not Reportable 04/03/24 21:30 Blood Culture - Preliminary Blood 04/03/24 20:16 Blood Culture - Preliminary Blood - Procedures and Test Procedures and Tests throughout Hospitalization: Therapy Orders & Screens 04/04/24 00:06 PT Screen per Nursing Assess ONCE Comment: Protocol Order Physician Instructions: Greater than 3 points order PT Admission Screenin Reason For Exam: Triggered on Admission Diagnosis: L foot pain Open Wound/Cellutlitis/Pressure Ulcers: Yes Acute Fx/ORIF/Change in wt bearing status: No Severe MUSCULOSKELETAL pain: No ADL Dysfunction: No Acute CVA w/Hemiparesis/Hemiplegia: No Decreased Functional Mobility/Strength: Yes Sprain/Strain: No Acute Post-op Mobility Dysfunction: No Total Points: 6 Smoking Cessation Education ONCE Comment: Diagnosis: L foot pain Smoking Status: Current every day smoker How long have you smoked: 15 years Have you smoked in the past 12 months: Yes Approximately how many cigarettes per day: one pack/day Do you dip or chew tobacco: No 04/04/24 00:55 PT Eval & Treat (MD Order) ONCE Reason for Eval:: inability to walk Diagnosis: L foot pain Discharge Exam General Appearance: no apparent distress Neurologic Exam: alert, oriented x 3, cooperative Eye Exam: PERRL, EOMI, eyes nml inspection Ears, Nose, Throat Exam: normal ENT inspection Neck Exam: normal inspection, non-tender, supple Cardiovascular Exam: regular rate/rhythm, normal heart sounds Gastrointestinal/Abdomen Exam: soft, normal bowel sounds, No tenderness Male Genitalia Exam: deferred Rectal Exam: deferred Back Exam: normal inspection Extremity Exam: normal inspection Skin Exam: normal color Wound Assessment: Skin/Wound Assessment Wound/Incision Assessment Start: 04/04/24 00:06 Text: Status: Active Freq: Q6H Protocol: Document 04/06/24 08:00 KAREENCLARENCE (Rec: 04/06/24 10:05 INGRID [id number]) Wound/Incision Assessment Left Foot Wound Assessment Shift Assessment Wound Type DEBRIDEMENT SITE Wound Stage Non Pressure Wound Dressing Status Dry & Intact Drainage Amount None Comment DR. WYLIE DRESSING CLEAN, DRY AND INTACT Lymphatic Exam: No adenopathy Final Diagnosis/Problem List - Final Discharge Diagnosis/Problem (1) Wound of left foot Current Visit: Yes Status: Acute Assessment & Plan: Assessment/Plan (1) Wound of left foot Current Visit: Yes Status: Acute Assessment & Plan: -Post op debridement -Dismiss with oral Doxycycline -Follow up with Podiatry (2) HLD (hyperlipidemia) Current Visit: Yes Status: Acute Assessment & Plan: -continue home meds (3) HTN (hypertension) Current Visit: Yes Status: Acute Assessment & Plan: -Continue home meds: amlodipine (4) SY (obstructive sleep apnea) Current Visit: Yes Status: Acute Assessment & Plan: -CPAP (5) Anxiety and depression Current Visit: Yes Status: Acute Assessment & Plan: -continue home abilify, paroxetine Code(s): S91.302A - UNSPECIFIED OPEN WOUND, LEFT FOOT, INITIAL ENCOUNTER Telemedicine Encounter - Telemedicine Encounter Telemedicine Encounter: "The entirety of this encounter was performed via Telemedicine" This visit was performed using real-time audio and video connection between my location and thepatients locationwith the assistance of a surrogateat the patients location. Written or verbal consent was obtained from the patient/guardian to perform this visit [facility]. Any patient questions regarding the telemedicine interaction were answered. - Discharge Disposition: Home, Self-Care Condition: Stable Prescriptions: No Action Zolpidem Tartrate 10 mg [Ambien 10 MG] 1 tab PO EVENING MEAL Aripiprazole 10 mg [Abilify 10 MG] 1 tab PO EVENING MEAL PARoxetine HCL [Paroxetine HCl] 10 mg PO DAILY Atorvastatin Calcium 80 mg PO EVENING MEAL Amiodarone HCl [Pacerone] 200 mg PO DAILY Amlodipine Besylate 5 mg [Norvasc 5 mg] 1 tab PO EVENING MEAL Atomoxetine HCl 18 mg PO DAILY Aspirin EC 81 mg [Ecotrin 81 mg] 1 tab PO EVENING MEAL PARoxetine HCL [Paroxetine HCl] 10 mg PO DAILY Hydrocodone/Acetaminophen [Hydrocodone-Acetamin 7.5-325] 1 each PO BID Dextroamphetamine/Amphetamine [Dextroamp-Amphetamin 30 mg Tab] 30 mg PO DAILY Follow up with: DOCTOR,NO FAMILY [Primary Care Provider] -
[2024-04-06] MEDS ORDERED: MEDICATION INTERVENTION MC SCH (11:15)
[2024-04-06 11:29] VITALS: BP 140/74; PULSE 58; TEMP 97.6; O2SAT 97
[2024-04-06] MEDS ORDERED: Vibramycin 100 MG ONE (11:46)
[2024-04-06] MEDS: Vibramycin 100 MG PO SCH (11:47)
[2024-04-06] MEDS ORDERED: TROUGH DRUG LEVELS IJ ONE (12:30)
[2024-04-07] MEDS ORDERED: NON-FORMULARY ITEM (Dextroamphetamine/Amphetamine [Dextroamp-Amphetamin 30 Mg Tab] 30 MG T PO SCH (10:00)
[2024-04-07] MEDS ORDERED: NON-FORMULARY ITEM (Paroxetine Hcl [Paroxetine Hcl] 10 MG Tablet) PO SCH (10:00)
[2024-04-07] MEDS ORDERED: Paxil 20 MG PO SCH (10:00)
== END 2024-04-06 12:20 | disposition left against medical advice (07) ==
LOC: ED 17:42 → MED SURG 23:05
PROVIDERS: ADMIT Internal Medicine Nephrology; ATTEND Internal Medicine Nephrology
DX: S91.302A Unspecified open wound, left foot, initial encounter (principal); Z59.811 Housing instability, housed, with risk of homelessness; Z59.82 Transportation insecurity; L97.522 Non-pressure chronic ulcer of other part of left foot with fat layer exposed; E78.5 Hyperlipidemia, unspecified; I10 Essential (primary) hypertension; D72.829 Elevated white blood cell count, unspecified; F17.200 Nicotine dependence, unspecified, uncomplicated; G47.33 Obstructive sleep apnea (adult) (pediatric); E87.6 Hypokalemia; R79.89 Other specified abnormal findings of blood chemistry; Z79.899 Other long term (current) drug therapy
CPT/HCPCS: 11042; 28308; 36415; 73630; 76000; 80053; 83036; 83605; 83735; 84132; 85025; 85652; 87040; 87070; 87075; 87077; 87186; 93041; 93926; 94760; 96372; 99223; 99285; G0378; Q3014; J0692; J1644; J2060; J2250; J2704; J3010; A9270-GY; J3370